=== PATIENT | male | born 1980 | race Caucasian/White ===

== ENCOUNTER 2020-02-27 13:08 | Emergency (ER) | payer BC, SELFPAY ==
[2020-02-27 13:30] VITALS: BP 138/89; PULSE 74; RESP 18; TEMP 37; O2SAT 98; BMI 28.1
--- NOTE | 2020-02-27 13:34 | XR_ITS ---
PROCEDURE: XR CHEST 2V CLINICAL HISTORY: SHORTNESS OF BREATH COMPARISON: CXR4 CHEST-SPECIAL VIEWS:DECUBITUS from 10/05/[address] CHEST W/ CONTRAST from 10/06/2016 CXR CHEST(2 VIEWS-NOT PORTABLE) from 10/07/2016 CXR CHEST(2 VIEWS-NOT PORTABLE) from 10/07/2016 FINDINGS: The cardiomediastinal silhouette and pulmonary vascularity are within normal limits. The lungs are clear without infiltrates, suspicious nodules, or pleural effusions. The right hemidiaphragm is slightly elevated as before. IMPRESSION: No acute findings. Dictated by: Malik Zaidi MD 02/27/2020 14:03 Electronically signed by Malik Zaidi MD in [place] 02/27/2020 14:03
--- NOTE | 2020-02-27 13:55 | HMH.EDUTC ---
[facility] [place] Clinical Impression: Viral syndrome, Pleurisy Disposition: Home, Self-Care Condition on Discharge: Good Instructions: DI for Pleurisy, DI for Viral Syndrome, Preventing the Spread of Coronavirus Discharge Instructions Additional Instructions: Drink plenty of fluids. Take tylenol or ibuprofen for pain or fever. Take the medications as directed. Follow up with your regular doctor. GO TO THE ER FOR ANY WORSENING SYMPTOMS Prescriptions: Ondansetron [Zofran 4mg ODT] 4 mg PO Q8HP PRN #10 tab.rapdis PRN Reason: Nausea Transmission Status: Received by [facility] # methylPREDNISolone [Medrol] 4 mg PO DIRECTED 6 Days #21 tab.ds.pk Transmission Status: Received by [facility] # Azithromycin [Z-Tim 250mg Tab*] 250 mg PO UD DOSE PK #6 tab Transmission Status: Received by [facility] # Referrals: Naveed Kramer MD [Primary Care Provider] - Time of Disposition: 14:14 Medical Decision Making - Medical Records Medical records reviewed: No: I reviewed the patient's medical records. - [place] Inquiry Pt receiving controlled substance: No Vital Signs: 02/27/20 13:30 02/27/20 14:16 Temperature 98.6 F 98.6 F Temperature Source Oral Pulse Rate 74 Pulse Rate [Left Brachial] 74 Respiratory Rate 18 18 Blood Pressure 138/89 Blood Pressure [Left Arm] 138/89 Blood Pressure Mean [Left Arm] 105 Blood Pressure Source [Left Arm] Automatic Cuff Blood Pressure Position [Left Arm] Sitting 02 Sat by Pulse Oximetry 98 Oxygen Delivery Method Room Air - Lab Data Lab results reviewed: Yes: I reviewed the patient's lab results. Lab Results 02/27/20 13:35: Influenza Type A Ag Negative, Influenza Type B Ag Negative 02/27/20 13:35: Strep Scn Rapid [facility] Negative Orders (Tests/Meds): ED MEDICATIONS Discontinued Medications Generic Name Dose Route Start Last Admin Trade Name Freq PRN Reason Stop Dose Admin Ceftriaxone Sodium 1 gm 02/27/20 14:06 02/27/20 14:13 Rocephin 1gm Vial IM 02/27/20 14:07 1 gm ONCE ONE Administration Protocol Lidocaine HCl 0 ml 02/27/20 14:02/27/20 14:13 Lidocaine 1% 10ml Mdv IM 02/27/20 14:07 2.1 ml ONCE ONE Administration Methylprednisolone Sodium Succinate 125 mg 02/27/20 14:06 02/27/20 14:11 Solu-Medrol 125mg/2ml Vial IM 02/27/20 14:07 125 mg ONCE ONE Administration ORDERS Category Date Time Status SARS-CoV-2, BIN Stat Lab 02/27/20 14:21 Received Strep Screen Confirmation Stat Micro 02/27/20 13:35 Received - Radiology Data #1 Image(s): Chest Image Reviewed: Yes I reviewed the patient's radiology image Preliminary Findings: No Infiltrates Seen PROCEDURE: XR CHEST 2V CLINICAL HISTORY: SHORTNESS OF BREATH COMPARISON: CXR4 CHEST-SPECIAL VIEWS:DECUBITUS from 10/05/[address] CHEST W/ CONTRAST from 10/06/2016 CXR CHEST(2 VIEWS-NOT PORTABLE) from 10/07/2016 CXR CHEST(2 VIEWS-NOT PORTABLE) from 10/07/2016 FINDINGS: The cardiomediastinal silhouette and pulmonary vascularity are within normal limits. The lungs are clear without infiltrates, suspicious nodules, or pleural effusions. The right hemidiaphragm is slightly elevated as before. IMPRESSION: No acute findings. Dictated by: Malik Zaidi MD 02/27/2020 14:03 Electronically signed by Malik Zaidi MD in [place] 02/27/2020 14:03 [facility] [place] - General Stated complaint: headache,weak,fatique Time Seen by Provider: 02/27/20 13:15 Mode of Arrival: Ambulatory Source of Information: Patient Limitations: No Limitations Description of Symptoms (Recalled from Triage Doc. by RN): PATIENT C/O FATIGUE, BODY ACHES, NAUSEA, SHORTNESS OF BREATH, AND SORE THROAT SINCE YESTERDAY. DENIES FEVER. NO KNOWN SICK CONTACTS HEENT Symptoms (Recalled from RN notes): Yes Resp Symptoms (Recalled from RN notes): Yes Skin Symptoms (Recalled from RN notes): No MS Symptoms (Recalled fr
[2020-02-27 14:16] VITALS: BP 138/89; PULSE 74; RESP 18; TEMP 37; O2SAT 98
[2020-02-27 14:17] LABS: UTC Influenza A Antigen Negative (Negative); UTC Strep Screen (Rapid) Negative (Negative)
[2020-02-27 14:18] LABS: UTC Influenza B Antigen Negative (Negative)
[2020-02-29 15:39] LABS: Covid-19 Nasal PCR Sendout Lex NOT DETECTED
== END 2020-02-27 14:31 | disposition home or self-care (01) ==
PROVIDERS: Emergency Provider Nurse Practitioner Family; PCP Family Medicine
DX: B34.9 Viral infection, unspecified (principal); R09.1 Pleurisy; Z88.8 Allergy status to other drugs, medicaments and biological substances
CPT/HCPCS: 71046; 87804; 87880; 96372; 99203; U0004

== ENCOUNTER → 2021-05-15 09:41 | Outpatient (CLI) | payer BC, SELFPAY | PROVIDERS: PCP Internal Medicine; Visit Provider Nurse Practitioner | DX: Z11.52 Encounter for screening for COVID-19 (principal) | CPT/HCPCS: C9803; U0003; U0005 ==

== ENCOUNTER → 2021-09-23 14:40 | Outpatient (CLI) | payer BC, SELFPAY | PROVIDERS: PCP Pediatrics; Visit Provider Nurse Practitioner | DX: Z20.822 Contact with and (suspected) exposure to COVID-19 (principal) | CPT/HCPCS: C9803; U0003; U0005 ==

== ENCOUNTER 2022-02-06 13:08 | Observation (INO) | payer BC, SELFPAY ==
[2022-02-06] VITALS (14 sets, daily range): BP systolic 118–150; BP diastolic 62–96; PULSE 78–112; RESP 16–18; TEMP 35.4–37.1; O2SAT 86–98; BMI 29.0
--- NOTE | 2022-02-06 13:12 | PC.NURSE ---
AHSAN CONKLIN at notified of pt rectal temp 95.3
--- NOTE | 2022-02-06 13:17 | ECG_ITS ---
APPROVED REPORT Exam: Resting ECG HR:102 bpm ECG Measurements Heart Rate 102 AXES MI 164 P 26 QRSd 106 QRS 45 QT 347 T 29 QTc 405 Conclusion SINUS TACHYCARDIA ABNORMAL RHYTHM ECG UNCONFIRMED REPORT Electronically signed by : Naveed Barrow MD 02/07/2022 20:17:42
[2022-02-06 14:02] LABS: Amphetamine/Metha Screen,Urine Negative ng/ml (<1000)
[2022-02-06 14:03] LABS: Barbiturates Screen,Urine Negative ng/ml (<200)
[2022-02-06 14:04] LABS: Benzodiazepines Screen,Urine Negative ng/ml (<200); Cannabinoid Screen,Urine Negative ng/ml (<50)
[2022-02-06 14:05] LABS: Cocaine Screen,Urine Negative ng/ml (<300); Methadone Screen,Urine Negative ng/ml (<300)
[2022-02-06 14:06] LABS: Opiate Screen,Urine Negative ng/ml (<300)
[2022-02-06 14:07] LABS: Phencyclidine Screen,Urine Negative ng/ml (<25)
--- NOTE | 2022-02-06 14:10 | HMH.EDGENADL ---
ED Disposition Clinical Impression: Anemia, Ingestion of unknown medication, Hypoalbuminemia Disposition: Still a Patient Condition on Discharge: Undetermined - Critical Care Critical Care Time: No Attestation: On 02/06/22, the high probability of a clinically significant, sudden or life threatening deterioration of the following system(s) required my full and direct attention, intervention and personal management. The time I documented below is in addition to time spent performing reported procedures but includes the following listed in this critical care notation. Medical Decision Making - Medical Records Medical records reviewed: Yes: I reviewed the patient's medical records. - Carroll Inquiry Pt receiving controlled substance: No Vital Signs: 02/06/22 13:07 02/06/22 13:24 02/06/22 13:30 Temperature 95.8 F L Temperature Source Rectal Pulse Rate 78 78 Pulse Rate [Right] 108 H Respiratory Rate 16 18 16 Blood Pressure 122/94 H 148/89 H Blood Pressure [Right Arm] 136/96 H Blood Pressure Mean 99 108 Blood Pressure Mean [Right Arm] 109 Blood Pressure Source [Right Arm] Automatic Cuff Blood Pressure Position [Right Arm] Sitting 02 Sat by Pulse Oximetry 96 86 L 88 L Oxygen Delivery Method Room Air 02/06/22 14:30 02/06/22 15:00 02/06/22 15:30 Temperature Temperature Source Pulse Rate 105 H 105 H Pulse Rate [Right] Respiratory Rate 18 16 16 Blood Pressure 131/84 122/78 123/73 Blood Pressure [Right Arm] Blood Pressure Mean 99 92 83 Blood Pressure Mean [Right Arm] Blood Pressure Source [Right Arm] Blood Pressure Position [Right Arm] 02 Sat by Pulse Oximetry 97 97 Oxygen Delivery Method 02/06/22 16:30 02/06/22 17:03 02/06/22 17:30 Temperature Temperature Source Pulse Rate 112 H 101 H 105 H Pulse Rate [Right] Respiratory Rate 16 16 16 Blood Pressure 131/83 150/77 H 136/62 Blood Pressure [Right Arm] Blood Pressure Mean 95 90 86 Blood Pressure Mean [Right Arm] Blood Pressure Source [Right Arm] Blood Pressure Position [Right Arm] 02 Sat by Pulse Oximetry 97 Oxygen Delivery Method 02/06/22 17:40 Temperature 98.7 F Temperature Source Oral Pulse Rate Pulse Rate [Right] Respiratory Rate Blood Pressure Blood Pressure [Right Arm] Blood Pressure Mean Blood Pressure Mean [Right Arm] Blood Pressure Source [Right Arm] Blood Pressure Position [Right Arm] 02 Sat by Pulse Oximetry Oxygen Delivery Method - Lab Data Lab Results 02/06/22 13:27: Urine Opiates Screen Negative, Urine Methadone Screen Negative, Ur Barbituates Screen Negative, Ur Phencyclidine Scrn Negative, Ur Amphetamines Screen Negative, U Benzodiazepines Scrn Negative, Urine Cocaine Screen Negative, U Marijuana (THC) Screen Negative 02/06/22 13:27: VBG pH 7.27 L, VBG pCO2 35.6, VBG pO2 52.1 H, VBG HCO3 16.1 L, VBG Total CO2 17.1 L, VBG O2 Saturation 83.9 H, VBG Base Excess -10.8 L 02/06/22 14:28: WBC 5.2, RBC 2.97 L, Hgb 8.7 L, Hct 26.7 L, MCV 89.8, MCH 29.4, MCHC 32.7, RDW 13.9, Plt Count 153, MPV 7.8, Neut % (Auto) 80.3 H, Lymph % (Auto) 14.0, [place] % (Auto) 5.0, Eos % (Auto) 0.4, Baso % (Auto) 0.3, Neut # (Auto) 4.1, Lymph # (Auto) 0.7, [place] # (Auto) 0.3, Eos # (Auto) 0.0, Baso # (Auto) 0.0 02/06/22 14:28: Sodium 132 L, Potassium 4.2, Chloride 105, Carbon Dioxide 16 L, Anion Gap 15.2 H, BUN 7 L, Creatinine 0.50 L, Estimated Creat Clear 235, Estimated GFR 185, Est GFR ( Amer) 224, Glucose 64 L, Calcium 7.5 L, Total Bilirubin 0.4, AST 23, ALT 22, Alkaline Phosphatase 49, Troponin I < 0.01, Total Protein 3.9 L, Albumin 2.1 L, Globulin 1.8, Albumin/Globulin Ratio 1.2, Salicylates < 1.0 L, Acetaminophen < 10 L 02/06/22 14:28: Acetone Level None detected 02/06/22 15:52: Lactate 1.2 02/06/22 15:52: Plasma/Serum Alcohol < 10 02/06/22 16:45: Troponin I < 0.01 02/06/22 17:37: SARS-CoV-2 (PCR) Not detected, Influenza A Untype (PCR) Not detected, Influenza Type B (PCR) N
--- NOTE | 2022-02-06 14:17 | PC.NURSE ---
checked on pt at this time, mother at Bs, pt Sleeping. Pt mother reports pt was saying pt mouth was dry, will ask the doctor about anything PO at this time.
--- NOTE | 2022-02-06 14:18 | PC.NURSE ---
at bedside with US attempting to obtain blood. Lab was unsuccessful with two tech attempting.
--- NOTE | 2022-02-06 14:21 | PC.NURSE ---
ER at attempting to obtain blood on pt with ultrasound
--- NOTE | 2022-02-06 14:23 | PC.NURSE ---
pt arrived to ER with AMS, will answer some questions appropriately but is hard to arouse. PT gives multiple stories as to what he may have possibly taken or what is going. PT has hx of drug abuse and is currently on suboxone. Parents arrived and reported that when dad went over to his house he had to knock multiple times and when he answered he was altered and then fell to the floor. Dad called 911, EMS arrived and gave pt .5mg of narcan with no change. Pt is very pale in color and cool to the touch. temp was 95.8 rectal, warm blankets placed on pt and warm fluids started. Parents report they are unsure if pt has been using anything recently outside of his normal meds.
--- NOTE | 2022-02-06 14:42 | PC.NURSE ---
Notified resp of VBG order and blood was in lab
[2022-02-06 14:52] LABS: VBG Base Excess -10.8 mmol/L (-2.4-2.3); VBG HCO3 16.1 mmol/L (23-30); VBG Oxygen Saturation 83.9 % (50-70); VBG PCO2 35.6 mmol/L (35-51); VBG PH 7.27 mmol/L (7.31-7.41); VBG PO2 52.1 mmol/L (28-40); VBG Total CO2 17.1 mmol/L (23-27)
[2022-02-06 15:02] LABS: Acetaminophen < 10 ug/ml (10-30); Salicylate < 1.0 mg/dL (2.0-20.0)
--- NOTE | 2022-02-06 15:11 | PC.NURSE ---
PT rectal temp 96.5, pt still under warm blankets at this time
[2022-02-06 15:15] LABS: Troponin I < 0.01 ng/ml (0.00-0.034)
[2022-02-06 15:24] LABS: Acetone, Serum (Rapid) None Detected (None Detect)
--- NOTE | 2022-02-06 15:41 | PC.NURSE ---
lab called regarding lactic ordered. Family updated on POC.
--- NOTE | 2022-02-06 15:50 | CT_ITS ---
FINAL REPORT CLINICAL HISTORY: elevated lactate/ abdominal pain COMPARISON: September 30, 2019 FINDINGS: Axial CT images of the abdomen and pelvis were obtained without intravenous contrast. Coronal reformatted images were also obtained.This study was performed with techniques to keep radiation doses as low as reasonably achievable (ALARA). Individualized dose reduction techniques using automated exposure control or adjustment of mA and/or kV according to the patient's size were employed. Abdomen: There is mild bibasilar atelectasis. There is a less than 3 mm probable nonobstructing stone in the mid left kidney. There is no hydronephrosis. The gallbladder is present. The liver and pancreas have an unremarkable, unenhanced appearance. The spleen is borderline in size at 12.6 cm. No mass or adenopathy is seen. No inflammatory process is identified. Pelvis: Images of the pelvis reveal no evidence of ureteral dilation or ureteral stone. The appendix is not seen and likely surgically absent. There is a small amount of air in the bladder that may be iatrogenic. The bladder is distended extending to near the umbilicus. IMPRESSION: Nonobstructing probable left renal stone. Distended bladder with a small amount of air that may be iatrogenic. Reviewed, Interpreted and Dictated by Keith Metz III, MD Transcribed by Roberto Almeida Authenticated and [facility]
--- NOTE | 2022-02-06 15:53 | PC.NURSE ---
speaking with Poison Control at this time.
--- NOTE | 2022-02-06 15:58 | PC.NURSE ---
pt taken to CT at this time.
[2022-02-06 16:07] LABS: Lactic Acid 1.2 mmol/L (0.7-2.1)
[2022-02-06 16:29] LABS: Ethyl Alcohol < 10 mg/dl (0-10)
--- NOTE | 2022-02-06 16:51 | PC.NURSE ---
pt attempting to urinal at this time, pt reports did not need assistance
--- NOTE | 2022-02-06 17:00 | PC.NURSE ---
paged dr mata
--- NOTE | 2022-02-06 17:20 | PC.NURSE ---
AHSAN CONKLIN speaking with Dr. Nolan who is financial services consultant for service pts
--- NOTE | 2022-02-06 17:29 | PC.NURSE ---
notified care management of admission, spoke arturo. States she will let the warehouse shipping supervisor know.
--- NOTE | 2022-02-06 17:41 | PC.NURSE ---
covid swab sent to lab
[2022-02-06 17:45] LABS: Troponin I < 0.01 ng/ml (0.00-0.034)
[2022-02-06 17:46] LABS: Coronavirus 19, PCR Not Detected (NotDetected); Influenza A, PCR Not Detected (NotDetected); Influenza B, PCR Not Detected (NotDetected)
--- NOTE | 2022-02-06 18:15 | PC.NURSE ---
pt awake alert oriented x 4 family at bedside updated on plan of care
--- NOTE | 2022-02-06 18:23 | PC.NURSE ---
report called to floor
[2022-02-06 18:28] LABS: POC Glucose,Bedside 88 (70-110)
--- NOTE | 2022-02-06 18:38 | PC.NURSE ---
pT ARRIVED TO THE FLOOR AT THIS TIME
[2022-02-06 21:02] LABS: Iron 58 ug/dL (49-181)
[2022-02-06 21:09] LABS: Phosphorous 2.4 mg/dl (2.5-4.5)
[2022-02-06 21:11] LABS: Total Iron Binding Capacity 346 ug/dL (261-462)
[2022-02-06 22:04] LABS: Vitamin B12 702 pg/mL (239-931)
[2022-02-06 22:08] LABS: Folate 8.55 ng/mL
--- NOTE | 2022-02-06 22:50 | HMH.HP ---
*Admission Date: 02/06/22 *Chief complaint: encephalopathy *History of present illness: Mr. Snow is a 41-year-old male with past medical history significant for opiate dependence, depression, on Suboxone therapy. He presented to the ER this afternoon with altered mental status. Parents with him in the ER. Concerned that he took too much of his Suboxone along with some of his other medications for depression and to help him sleep. He was somnolent on arrival and unable to give a reliable history. Initiated work-up for metabolic causes. UDS was negative. (Does not look for synthetics however). Metabolic work-up positive for anion gap acidosis, marked normocytic anemia, hypoalbuminemia, and mild electrolyte disturbances. Given his confusion, lab findings concerning for malnutrition and anemia, medicine was consulted for admission. Patient was reevaluated after arriving to the floor. His mentation appears to have improved. He was alert and oriented x4. Parents at bedside state that he is more coherent than he was on arrival. When asked about substance use, home medications, he initially admitted Suboxone as one of his meds. States that he was taking his medications as prescribed until questioned by his father who stated he had counted his Suboxone strips. It is at this time that he stated he took more than he was supposed to and is actually out of his medication (inappropriately early). Denies other substance use. States he has been eating very poorly. Denies any active SI or HI. Only other complaint is some mild abdominal discomfort on exam. No significant shortness of breath, chest pain, vomiting, diarrhea. [facility] History I have reviewed the patient's past medical history: Yes Medical History: Reports:: Hypertension Denies:: Cancer, Diabetes Mellitus Type 1, Diabetes Mellitus Type 2, MRSA *Have you ever received a pneumonia vaccine?: No *Have you received a flu vaccine this season?: No Other Medical History: Reports: Anemia Other Surgeries: Yes: Appendectomy, EGD Amputation: No Fractures: No - *Social History Last grade of school completed: Some college Smoking Status: Never smoker Alcohol Intake: never *Occupational Status:: unemployed Housing: house Household Members: other *Travel in the last 8 weeks: None Family Hx:: Non-contributory Review of Systems - Review of Systems Review of systems:: pertinent systems reviewed and negative unless documented below (14 point review of systems performed, pertinent positives and negatives as per HPI) Meds Home Medications Medication Instructions Recorded Confirmed Type Azithromycin [Z-Tim 250mg Tab*] 250 mg PO UD DOSE PK #6 tab 02/27/20 Rx Buprenorphine HCl/Naloxone HCl 1 each SL TID 02/27/20 02/27/20 History [Suboxone 2 mg-0.5 mg Sl Film] Buspirone HCl [Buspar 10mg 10 mg PO TID 02/27/20 02/27/20 History tablet] Doxepin HCl [Sinequin 50mg capsule] 50 mg PO ONCE 02/27/20 02/27/20 History Metoprolol Succinate [Metoprolol 50 mg PO DAILY 02/27/20 02/27/20 History Succinate 50mg Tablet*] Ondansetron [Zofran 4mg ODT] 4 mg PO Q8HP PRN #10 tab.rapdis 02/27/20 Rx methylPREDNISolone [Medrol] 4 mg PO DIRECTED 6 Days #21 02/27/20 Rx tab.ds.pk Allergies Allergy/AdvReac Type Severity Reaction Status Date / Time levetiracetam [LEVETIRACETAM] Allergy Unknown Verified 10/18/18 16:44 tramadol [TRAMADOL] Allergy Unknown Verified 10/18/18 16:44 Exam Vital signs and Labs for Last 24 Hours: Temp Pulse Resp BP Pulse Ox 98.8 F 86 18 119/70 96 02/06/22 20:00 02/06/22 20:00 02/06/22 20:00 02/06/22 20:00 02/06/22 20:00 Laboratory Results - last 24 hr 02/06/22 13:27: Urine Opiates Screen Negative, Urine Methadone Screen Negative, Ur Barbituates Screen Negative, Ur Phencyclidine Scrn Negative, Ur Amphetamines Screen Negative, U Benzodiazepines Scrn Negative, Urine Cocaine Screen Negative, U Marijuana (THC) Screen Negative 02/06/22 13:27: VB
[2022-02-07] VITALS: BP 123/69; PULSE 73; RESP 17; TEMP 37.1; O2SAT 97
[2022-02-07 04:00] VITALS: BP 110/74; PULSE 70; RESP 18; TEMP 36.5; O2SAT 94
--- NOTE | 2022-02-07 07:05 | PC.NURSE ---
Pt a+o x4. Pt has not voiced any complaints to staff. Call light within reach.
--- NOTE | 2022-02-07 07:42 | HMH.DCSUM ---
General - General Admission date:: 02/06/22 Discharge date: 02/07/22 HPI HPI: Mr. Mendoza is a 41-year-old male with past medical history significant for opiate dependence, depression, on Suboxone therapy. He presented to the ER this afternoon with altered mental status. Parents with him in the ER. Concerned that he took too much of his Suboxone along with some of his other medications for depression and to help him sleep. He was somnolent on arrival and unable to give a reliable history. Initiated work-up for metabolic causes. UDS was negative. (Does not look for synthetics however). Metabolic work-up positive for anion gap acidosis, marked normocytic anemia, hypoalbuminemia, and mild electrolyte disturbances. Given his confusion, lab findings concerning for malnutrition and anemia, medicine was consulted for admission. Patient was reevaluated after arriving to the floor. His mentation had improved, but not quite baseline. He was alert and oriented x4. Parents at bedside state that he is more coherent than he was on arrival. When asked about substance use, home medications, he initially admitted Suboxone as one of his meds. States that he was taking his medications as prescribed until questioned by his father who stated he had counted his Suboxone strips. It is at this time that he stated he took more than he was supposed to and is actually out of his medication (inappropriately early). Denies other substance use. States he has been eating very poorly. Denies any active SI or HI. Only other complaint is some mild abdominal discomfort on exam. No significant shortness of breath, chest pain, vomiting, diarrhea. Hospital Course Hospital Course: 41-year-old male with history of depression, substance dependence, who presented to the ER with encephalopathy. After significant questioning, admits to potentially taking more of his Suboxone than prescribed. Noted to have labs significant for electrolyte disturbances, protein deficiency, and marked anemia. Further work-up initiated. Repeat labs on day of discharge however showed drastic improvement in essential normalization of lab abnormalities from admission. Problems addressed as follows: Encephalopathy Opiate dependence on Suboxone therapy Malnutrition -Admitted for altered mental status. Given report of taking more Suboxone than prescribed, concern for medication overdose. Has returned to baseline by morning of discharge. Received IV fluids and rally pack (multivitamin). Tolerating p.o. intake on day of discharge. Work-up for malnutrition including B12, folate, phosphorus was unremarkable. Encouraged to increase protein intake. Recommend 50 to 60 g of protein a day. Would benefit from daily multivitamin. Anemia, acute versus chronic? -Unclear etiology. B12 and iron levels were obtained, within normal range. Peripheral smear obtained, pending at time of discharge. Recommend follow-up by PCP with his results. Depression -Resumed patient's home medications. Currently sees psychiatry. Needs to see a therapist. No active SI/HI Encouraged patient to follow-up with his psychiatrist in the coming week. Needs to follow-up with his Suboxone doctor in the coming week. If anemia persists, would benefit from further evaluation with consideration of colonoscopy. Objective Vital signs: Temp Pulse Resp BP Pulse Ox 97.7 F 70 18 110/74 94 L 02/07/22 04:00 02/07/22 04:00 02/07/22 04:00 02/07/22 04:00 02/07/22 04:00 Narrative: - Constitutional no acute distress, stable on room air - *Routine HEENT Exam Head: Present: normocephalic Eye: Present: EOMI, PERRL ENT: Present: mucous membranes moist - *Routine Neck Exam Present: supple. Absent: lymphadenopathy - *Routine Respiratory Exam Good air movement bilaterally, No crackles, rhonchi or wheeze - *Routine Cardiovascular Exam Present: RRR, no murmur - *Routine Abdominal Exam Pres
[2022-02-07 08:00] VITALS: BP 132/74; PULSE 80; RESP 18; TEMP 36.7; O2SAT 96
[2022-02-07 09:22] LABS: Basophils # 0.1 K/mm3 (0-0.2); Eosinophils # 0.1 K/mm3 (0.0-0.4); Eosinophils % 2.1 % (0.1-12.0); Hematocrit 36.9 % (42.0-52.0); Lymphocytes # 1.9 K/mm3 (0.7-4.5); Mean Corpuscular HGB Conc 34.3 g/dL (31.8-35.4); Mean Corpuscular Hemoglobin 29.5 pg (27.0-31.2); Mean Platelet Volume 7.3 fl (7.4-10.4); Monocytes # 0.3 K/mm3 (0.1-1.0); Monocytes % 5.9 % (1.7-9.3); Neutrophils # 3.3 K/mm3 (1.8-7.8); Platelet Count 224 K/mm3 (142-424); Red Blood Count 4.29 M/mm3 (4.60-6.20); Red Cell Distribution Width 14.2 % (11.5-17.5); White Blood Count 5.7 K/mm3 (4.8-10.8)
[2022-02-07 09:25] LABS: Chloride 106 mmol/L (98-107); Sodium 139 mmol/L (136-145)
[2022-02-07 09:28] LABS: Alanine Aminotransferase 37 U/L (12-78); Albumin Level 3.7 g/dl (3.5-5.0); Albumin/Globulin Ratio 1.3 (1.1-1.8); Alkaline Phosphatase 89 U/L (38-126); Aspartate Amino Transferase 33 U/L (17-59); Bilirubin,Total 0.8 mg/dl (0.2-1.3); Blood Urea Nitrogen 13 mg/dl (9-20); Carbon Dioxide 30 mmol/L (22.0-30.0); Creatinine Clearance Estimated 107 mL/min (50-200); Estimated Glomerular Filt Rate 75 ml/min (>60); GFR (African American) 90 ML/MIN (>60); Globulin 2.8 g/dL (1.3-3.2); Total Protein,Serum 6.5 g/dl (6.3-8.2)
[2022-02-07 09:29] LABS: Calcium 8.9 mg/dl (8.4-10.2); Glucose 121 mg/dl (74-100)
--- NOTE | 2022-02-07 09:49 | P.CONPHA_ITS ---
[facility] Pharmacy VTE Monitoring - Patient Demographics Admission date: 02/07/22 Report Date: 02/07/22 Time: 09:49 Allergies/Adverse Reactions: Patient Allergies levetiracetam [LEVETIRACETAM] Allergy (Unknown, Verified 10/18/18 16:44) tramadol [TRAMADOL] Allergy (Unknown, Verified 10/18/18 16:44) Height: 1.7 m Weight: 83.915 kg Patient Problems: Current Active Problems Anemia (Acute) Ingestion of unknown medication (Acute) Hypoalbuminemia (Acute) Encephalopathy (Acute) Malnutrition (Acute) - VTE Risk Labs: VTE Related Lab Results Hgb 8.7 g/dL (14.1-18.0) L 02/06/22 14:28 Hct 26.7 % (42.0-52.0) L 02/06/22 14:28 Plt Count 153 K/mm3 (142-424) 02/06/22 14:28 BUN 7 mg/dl (9-20) L 02/06/22 14:28 Creatinine 0.50 mg/dl (0.66-1.25) L 02/06/22 14:28 Estimated Creat Clear 235 mL/min (50-200) 02/06/22 14:28 Was VTE Risk Assessment Performed: Yes VTE Score: 0 VTE Risk Level: Very Low Risk Clinical Trial Participant: No - Prophylaxis VTE Prophylaxis Ordered?: Yes Types of VTE Prophylaxis: TEDS Knee High
--- NOTE | 2022-02-07 09:58 | HMH.PHAINT ---
home medication list verified using list from outpatient pharmacy, including suboxone
[2022-02-07 10:38] LABS: Magnesium 2.3 mg/dl (1.6-2.3); Phosphorous 2.6 mg/dl (2.5-4.5)
[2022-02-07 11:41] LABS: Hemoglobin 12.7 g/dL (14.1-18.0)
[2022-02-07 15:10] LABS: Sodium 139 mmol/L (136-145)
[2022-02-07 15:11] LABS: Carbon Dioxide 29 mmol/L (22.0-30.0); Chloride 104 mmol/L (98-107)
[2022-02-07 15:12] LABS: Blood Urea Nitrogen 14 mg/dl (9-20)
[2022-02-07 15:13] LABS: Glucose 148 mg/dl (74-100)
[2022-02-07 15:14] LABS: Aspartate Amino Transferase 39 U/L (17-59); Bilirubin,Total 0.7 mg/dl (0.2-1.3)
[2022-02-07 15:15] LABS: Alanine Aminotransferase 43 U/L (12-78); Total Protein,Serum 6.9 g/dl (6.3-8.2)
[2022-02-07 15:16] LABS: Albumin/Globulin Ratio 1.4 (1.1-1.8); Alkaline Phosphatase 96 U/L (38-126); Calcium 9.3 mg/dl (8.4-10.2); Globulin 2.9 g/dL (1.3-3.2)
[2022-02-07 15:19] LABS: Anion Gap 10.6 mEq/L (5-15); Potassium 4.6 mmoL/L (3.5-5.1)
[2022-02-07 15:20] LABS: Creatinine Clearance Estimated 118 mL/min (50-200); Estimated Glomerular Filt Rate 83 ml/min (>60); GFR (African American) 101 ML/MIN (>60)
[2022-02-07 15:22] LABS: Red Blood Count 4.28 M/mm3 (4.60-6.20); White Blood Count 7.5 K/mm3 (4.8-10.8)
[2022-02-07 15:23] LABS: Hematocrit 37.9 % (42.0-52.0); Hemoglobin 12.7 g/dL (14.1-18.0); Mean Corpuscular Volume 88.6 fl (80-94)
[2022-02-07 15:24] LABS: Mean Corpuscular Hemoglobin 29.7 pg (27.0-31.2); Platelet Count 239 K/mm3 (142-424); Red Cell Distribution Width 14.2 % (11.5-17.5)
[2022-02-07 15:25] LABS: Eosinophils % 0.6 % (0.1-12.0); Lymphocytes % 12.8 % (10-50); Monocytes % 2.9 % (1.7-9.3); Neutrophils % 82.4 % (37.0-80.0)
[2022-02-07 15:26] LABS: Basophils % 0.9 % (0.1-2.0); Monocytes # 0.2 K/mm3 (0.1-1.0); Neutrophils # 6.2 K/mm3 (1.8-7.8)
[2022-02-07 15:28] LABS: Mean Corpuscular HGB Conc 33.6 g/dL (31.8-35.4)
[2022-02-08 20:42] LABS: Peripheral Smear Review Scanned Result
--- NOTE | 2022-02-09 14:37 | CARE MANAGER ---
Contacted patient related to discharge from hospital. States that he is doing better. He has the information he needs for increased caloric intake. He has made follow up appointments with appropriate physicians and denies any questions or concerns at this time. Ольга Leo
== END 2022-02-07 13:54 | disposition home or self-care (01) ==
LOC: ER 14:12 → 2ND 18:28
PROVIDERS: Emergency Medicine; Admitting Provider Internal Medicine Adolescent Medicine; Emergency Provider Student in an Organized Health Care Education/Training Program; PCP Family Medicine; Visit Provider Internal Medicine Adolescent Medicine
DX: G93.40 Encephalopathy, unspecified (principal); T50.901A Poisoning by unspecified drugs, medicaments and biological substances, accidental (unintentional), initial encounter; E46 Unspecified protein-calorie malnutrition; Z68.29 Body mass index [BMI] 29.0-29.9, adult; E88.09 Other disorders of plasma-protein metabolism, not elsewhere classified; D64.9 Anemia, unspecified; Z20.822 Contact with and (suspected) exposure to COVID-19
CPT/HCPCS: 36415; 74176; 80053; 80305; 80329; 82009; 82607; 82746; 82803; 82962; 83540; 83550; 83605; 83735; 83930; 84100; 84484; 85025; 93005; 99285; C9803; G0378; J0574; U0003; U0005

== ENCOUNTER 2022-04-20 08:08 | Observation (INO) | payer BC, SELFPAY ==
[2022-04-20] VITALS (29 sets, daily range): BP systolic 104–142; BP diastolic 43–85; PULSE 89–135; RESP 13–20; TEMP 35.8–37; O2SAT 90–99; BMI 23.6; BMI 29.5
--- NOTE | 2022-04-20 08:10 | CT_ITS ---
FINAL REPORT TECHNIQUE: Axial CT images were performed through the head. Coronal reformatted images were submitted. This study was performed with techniques to keep radiation doses as low as reasonably achievable (ALARA). Individualized dose reduction techniques using automated exposure control or adjustment of mA and/or kV according to the patient's size were employed. CLINICAL HISTORY: unresponsive FINDINGS: There is some mild decreased attenuation in the deep white matter. The ventricles are normal in size. There is no evidence of hemorrhage. There is no mass or edema identified. There is no abnormal extra-axial fluid seen. The sinuses are well aerated. IMPRESSION: No acute intracranial process. Reviewed, Interpreted and Dictated by Vladimir Henry MD Transcribed by Anum Hernandez Authenticated and . [facility]
--- NOTE | 2022-04-20 08:10 | XR_ITS ---
FINAL REPORT CLINICAL HISTORY: unresponsive COMPARISON: February 27, 2020 FINDINGS: The heart size is normal. The mediastinum is normal. The lungs are a little underinflated. There is mild bibasilar atelectasis. There are no pleural effusions. There is no pneumothorax. There is no osseous abnormality. IMPRESSION: Underinflated lungs with mild bibasilar atelectasis. Reviewed, Interpreted and Dictated by Vladimir Henry MD Transcribed by Lay Fulton Authenticated and [facility]
--- NOTE | 2022-04-20 08:26 | ECG_ITS ---
APPROVED REPORT Exam: Resting ECG HR:132 bpm ECG Measurements Heart Rate 132 AXES QRSd 111 QRS 60 QT 320 T 5 QTc 398 Conclusion ATRIAL FLUTTER/TACHYCARDIA WITH RAPID VENTRICULAR RESPONSE MODERATE INTRAVENTRICULAR CONDUCTION DELAY [110+ ms QRS DURATION] NONSPECIFIC ST & T-WAVE ABNORMALITY ABNORMAL RHYTHM ECG UNCONFIRMED REPORT Electronically signed by : Naveed Barrow MD 04/21/2022 21:27:37
[2022-04-20 08:27] LABS: ABG Base Excess -0.2 mmol/L (-2.4-2.3); ABG HCO3 25.1 mmhg (22.0-26.0); ABG Oxygen Saturation 94 % (90-100); ABG PCO2 44.5 mmhg (35.0-45.0); ABG PH 7.37 mmol/L (7.35-7.45); ABG PO2 70.4 mmhg (80-100); ABG TCO2 26.5 mmhg (23-27); Source Right Radial
[2022-04-20 08:28] LABS: Allen's Test ACCEPTABLE
[2022-04-20 08:30] LABS: Oxygen ROOM AIR %
[2022-04-20 08:33] LABS: Basophils # 0.1 K/mm3 (0-0.2); Basophils % 0.6 % (0.1-2.0); Eosinophils # 0.1 K/mm3 (0.0-0.4); Hematocrit 44.7 % (42.0-52.0); Hemoglobin 14.1 g/dL (14.1-18.0); Lymphocytes # 1.7 K/mm3 (0.7-4.5); Lymphocytes % 18.2 % (10-50); Mean Corpuscular HGB Conc 31.4 g/dL (31.8-35.4); Mean Corpuscular Hemoglobin 29.3 pg (27.0-31.2); Mean Corpuscular Volume 93.4 fl (80-94); Mean Platelet Volume 7.5 fl (7.4-10.4); Monocytes # 0.5 K/mm3 (0.1-1.0); Neutrophils # 6.9 K/mm3 (1.8-7.8); Neutrophils % 75.1 % (37.0-80.0); Platelet Count 300 K/mm3 (142-424); Red Blood Count 4.79 M/mm3 (4.60-6.20); Red Cell Distribution Width 13.9 % (11.5-17.5); White Blood Count 9.2 K/mm3 (4.8-10.8)
--- NOTE | 2022-04-20 08:35 | PC.NURSE ---
Notified lab that we could only collect some of the labs, jeffrey reports she will come get the rest
--- NOTE | 2022-04-20 08:36 | PC.NURSE ---
contacted lab to draw blood on pt, only able to obtain a green and purple tube of blood on pt when starting both IVs
--- NOTE | 2022-04-20 08:37 | PC.NURSE ---
pt mother at at this time
--- NOTE | 2022-04-20 08:40 | INFXCTL.NOTE ---
ER to BS updating pt mother on POC
--- NOTE | 2022-04-20 08:41 | PC.NURSE ---
AHSAN CONKLIN at speaking with patients Mother at this time.
--- NOTE | 2022-04-20 08:41 | PC.NURSE ---
pt to CT via stretcher with QASIM burroughss
--- NOTE | 2022-04-20 08:41 | PC.NURSE ---
pt to CT via stretcher
--- NOTE | 2022-04-20 08:42 | CT_ITS ---
FINAL REPORT TECHNIQUE: Thin section axial CT images were performed from the lung apices to the upper abdomen after the administration of IV contrast. 3-D and MIP reconstructions performed. This study was performed with techniques to keep radiation doses as low as reasonably achievable (ALARA). Individualized dose reduction techniques using automated exposure control or adjustment of mA and/or kV according to the patient's size were employed. CLINICAL HISTORY: chest pain the last 2 days , unresponsive post narcan FINDINGS: Suboptimal opacification of the pulmonary arteries limits assessment for pulmonary emboli. There is no aortic dissection. There is no axillary adenopathy. There is a 10 mm right paratracheal lymph node. The heart size is normal. There is no pleural or pericardial effusion. Lung window images demonstrate no suspicious pulmonary nodule . There is mild basilar edema or atelectasis. IMPRESSION: Technically limited exam for assessment of pulmonary embolism. Mild basilar edema or atelectasis. Reviewed, Interpreted and Dictated by Vladimir Henry MD Transcribed by Kellie Redman Authenticated and [facility]
--- NOTE | 2022-04-20 08:43 | PC.NURSE ---
notified rad staff of added on CTA chest PE protocol ER MD gave verbal order states pt mother reports pt has recently been c/o chest pain
[2022-04-20 08:49] LABS: Coronavirus 19, PCR Not Detected (NotDetected); Influenza A, PCR Not Detected (NotDetected); Influenza B, PCR Not Detected (NotDetected)
[2022-04-20 08:50] LABS: Ethyl Alcohol < 10 mg/dl (0-10)
[2022-04-20 09:05] LABS: Amphetamine/Metha Screen,Urine Negative ng/ml (<1000); Barbiturates Screen,Urine Negative ng/ml (<200); Benzodiazepines Screen,Urine Negative ng/ml (<200); Cannabinoid Screen,Urine Negative ng/ml (<50); Cocaine Screen,Urine Negative ng/ml (<300); Methadone Screen,Urine Negative ng/ml (<300); Opiate Screen,Urine Negative ng/ml (<300); Phencyclidine Screen,Urine Negative ng/ml (<25)
[2022-04-20 09:11] LABS: Alanine Aminotransferase 59 U/L (12-78); Albumin Level 4.2 g/dl (3.5-5.0); Albumin/Globulin Ratio 1.3 (1.1-1.8); Alkaline Phosphatase 119 U/L (38-126); Anion Gap 14.3 mEq/L (5-15); Aspartate Amino Transferase 79 U/L (17-59); Blood Urea Nitrogen 12 mg/dl (9-20); Calcium 9.3 mg/dl (8.4-10.2); Carbon Dioxide 24 mmol/L (22.0-30.0); Chloride 103 mmol/L (98-107); Creatinine Clearance Estimated 93 mL/min (50-200); Estimated Glomerular Filt Rate 75 ml/min (>60); GFR (African American) 90 ML/MIN (>60); Globulin 3.2 g/dL (1.3-3.2); Glucose 124 mg/dl (74-100); Potassium 5.3 mmoL/L (3.5-5.1); Sodium 136 mmol/L (136-145); Total Protein,Serum 7.4 g/dl (6.3-8.2)
--- NOTE | 2022-04-20 09:11 | PC.NURSE ---
pt returned from CT via stretcher with QASIM burroughss x 2. Family at BS
--- NOTE | 2022-04-20 09:18 | PC.NURSE ---
Inga, supervisor seaming at to draw labs
--- NOTE | 2022-04-20 09:23 | PC.NURSE ---
AHSAN CONKLIN at speaking with patients Father.
[2022-04-20 09:25] LABS: Microscopic,Cath URINE MICROSCOPIC (MICROSCOPIC)
[2022-04-20 09:27] LABS: Appearance,Urine/Cath CLEAR (Clear); Bilirubin,Cath Negative (Negative); Blood, Urine/Cath TRACE-I (Negative); Color,Urine/Cath YELLOW (Yellow); Glucose,Urine/Cath (UA) Negative (Negative); Ketones,Urine/Cath Negative (Negative); Leukocyte Esterase,Cath Negative (Negative); Nitrate,Cath Negative (Negative); Protein,Urine/Cath TRACE (Negative); Urobilinogen,Cath 0.2 EU/dl (0.2)
[2022-04-20 09:51] LABS: Lactic Acid 1.3 mmol/L (0.7-2.1)
[2022-04-20 09:53] LABS: Troponin I < 0.01 ng/ml (0.00-0.034)
[2022-04-20 09:57] LABS: Bacteria,Urine/Cath TRACE /lpf; RBC,Urine/Cath Occasional # /hpf (0-3); Squamous Epithelial Ur./Cath Occasional #/hpf (0-5)
--- NOTE | 2022-04-20 11:07 | PC.NURSE ---
Paging Dr. Castellon for ER MD at this time
--- NOTE | 2022-04-20 11:13 | PC.NURSE ---
Called Dr Arceo for service pt asim, stated that he was in room and would have him call back
--- NOTE | 2022-04-20 11:41 | PC.NURSE ---
paged Dr. Castellon for 2nd time. spoke with Rose Marie in office
--- NOTE | 2022-04-20 11:51 | PC.NURSE ---
notified care management of admission
--- NOTE | 2022-04-20 11:52 | INFXCTL.NOTE ---
pt sleeping at this time, restraints removed. will continue to monitor
--- NOTE | 2022-04-20 12:16 | PC.NURSE ---
notified mix house operator per ER MD request (he spoke with dr. ruiz about this during admission conversation) pt needs step down bed, wants close monitor on pt r/t have to arouse pt for response. Notified ER MD at this time pt is started to wake up more, pt helped staff scoot himself up in bed and turn over on his side.
--- NOTE | 2022-04-20 12:20 | PC.NURSE ---
mother at bs, pt is relaxed and resting in bed. no needs at this time
--- NOTE | 2022-04-20 12:21 | PC.NURSE ---
contacting poison control at this time per ER request
--- NOTE | 2022-04-20 12:23 | PC.NURSE ---
spoke with ervin at poison control, request we repeat ekg, add tylenol and aspirin levels, keep pt for 24 obs, seizure precautions for approx 18 hrs. notified above information to AHSAN CONKLIN
--- NOTE | 2022-04-20 12:27 | PC.NURSE ---
notified lab of new orders on pt
--- NOTE | 2022-04-20 12:33 | ECG_ITS ---
APPROVED REPORT Exam: Resting ECG HR:114 bpm ECG Measurements Heart Rate 114 AXES DC 183 P 38 QRSd 104 QRS 43 QT 316 T 1 QTc 384 Conclusion SINUS TACHYCARDIA NONSPECIFIC T-WAVE ABNORMALITY ABNORMAL RHYTHM ECG WARNING: DATA QUALITY MAY AFFECT INTERPRETATION UNCONFIRMED REPORT Electronically signed by : Naveed Barrow MD 04/21/2022 21:27:10
[2022-04-20 12:47] LABS: Free Thyroxine Index 2.6 ug/dL (5.93-13.13); T4 (Thyroxine) 7.3 ug/dl (5.53-11.0); Triiodothryronine (T3) Uptake 35 % (23.5-40.5)
[2022-04-20 13:01] LABS: Thyroid Stimulating Hormone 1.92 uIU/mL (0.465-4.68)
--- NOTE | 2022-04-20 13:01 | PC.NURSE ---
report called to [facility] on second floor at this time, states room is not ready at this time states they will come down to transport pt.
[2022-04-20 13:03] LABS: Acetaminophen < 10 ug/ml (10-30); Salicylate < 1.0 mg/dL (2.0-20.0)
[2022-04-20 13:11] LABS: Troponin I < 0.01 ng/ml (0.00-0.034)
--- NOTE | 2022-04-20 13:16 | PC.NURSE ---
patient arrived to floor by stretcher from ED
--- NOTE | 2022-04-20 13:35 | P.CONPHA_ITS ---
[facility] Pharmacy VTE Monitoring - Patient Demographics Admission date: 04/20/22 Report Date: 04/20/22 Time: 13:35 Allergies/Adverse Reactions: Patient Allergies levetiracetam [LEVETIRACETAM] Allergy (Unknown, Verified 10/18/18 16:44) tramadol [TRAMADOL] Allergy (Unknown, Verified 10/18/18 16:44) Height: 1.73 m Weight: 88.082 kg - VTE Risk Labs: VTE Related Lab Results Hgb 14.1 g/dL (14.1-18.0) 04/20/22 08:19 Hct 44.7 % (42.0-52.0) 04/20/22 08:19 Plt Count 300 K/mm3 (142-424) 04/20/22 08:19 BUN 12 mg/dl (9-20) 04/20/22 08:19 Creatinine 1.10 mg/dl (0.66-1.25) 04/20/22 08:19 Estimated Creat Clear 93 mL/min (50-200) 04/20/22 08:19 Clinical Trial Participant: No - Prophylaxis VTE Prophylaxis Ordered?: Yes Types of VTE Prophylaxis: TEDS Knee High
--- NOTE | 2022-04-20 13:35 | HMH.PHAINT ---
Addendum entered and electronically signed by Asha Lopez PharmD 04/20/22 14:09: called patient's 3 providers and compared home medication lists. discussed with pt's parents and pt in his room and reviewed home medication bottles. Original Note: HOME MEDICATION LIST VERIFIED USING LIST FROM [facility] AND PT INTERVIEW
[2022-04-20 16:57] LABS: Troponin I < 0.01 ng/ml (0.00-0.034)
--- NOTE | 2022-04-20 18:01 | PC.NURSE ---
Pt has been resting in bed with his eyes closed since arriving to the floor. He awakens easily to verbal and tactile stimuli. Speech is mumbled. He's been NSR/ST on telemetry. Pt's mother is at bedside. Bed is locked and in the lowest position, call light is within reach. He remains on seizure precautions.
--- NOTE | 2022-04-20 19:00 | HMH.HP ---
*Admission Date: 04/20/22 *Chief complaint: overdose *History of present illness: 41 year old male, poor historian. History gleaned from mother. Currently using suboxone chronically. Relays history of kratom abuse, roundabout about current usage. Relays thoughts of wishing to end his life last night, then taking extra doses of doxepin. He will not specify or quantify. Previous admission here for mental status changes. Ct brain neg. CTA chest neg. Nursing staff relays clearing mentation since arrival to floor. Remains withdrawn and not forthcoming with information. Not actively suicidal at time of interview. Primary care provider is Sae Etienne. [facility] History Medical History: Reports:: Hypertension Denies:: Cancer, Diabetes Mellitus Type 1, Diabetes Mellitus Type 2, MRSA *Have you ever received a pneumonia vaccine?: No *Have you received a flu vaccine this season?: No Other Medical History: Reports: Anemia Other Surgeries: Yes: Appendectomy, EGD Amputation: No Fractures: No - *Social History Last grade of school completed: Advanced degree Smoking Status: Never smoker Alcohol Intake: never Substance Use Type: opiates *Occupational Status:: unemployed Housing: house Household Members: other *Travel in the last 8 weeks: None Family Hx:: Anemia, Cancer, Coronary Artery Disease, Diabetes, Hyperlipidemia, Hypertension, Mental illness Review of Systems - Review of Systems Review of systems:: unable to obtain Meds Home Medications Medication Instructions Recorded Confirmed Type Buprenorphine HCl/Naloxone HCl 2 each SL DAILY 02/27/20 04/20/22 History [Suboxone 2 mg-0.5 mg Sl Film] buPROPion HCL [Bupropion Xl] 300 mg PO DAILY 02/07/22 04/20/22 History Atorvastatin Calcium [Lipitor 10mg 10 mg PO HS 04/20/22 04/20/22 History Tablet*] Buspirone HCl [Buspar 10mg 10 mg PO BID 04/20/22 04/20/22 History tablet] Doxepin HCl 150 mg PO HS 04/20/22 04/20/22 History Duloxetine HCl [Cymbalta 30mg 30 mg PO DAILY 04/20/22 04/20/22 History capsule] Ergocalciferol (Vitamin D2) 1,250 mcg PO DAILY 04/20/22 04/20/22 History [Vitamin D2] Ferrous Sulfate [Ferosul] 325 mg PO DAILY 04/20/22 04/20/22 History Metoprolol Succinate [Metoprolol 50 mg PO DAILY 04/20/22 04/20/22 History Succinate 50mg Tablet*] Testosterone Cypionate 1 ml IM .EVERY 2 WEEKS 04/20/22 04/20/22 History [Depo-Testosterone 200mg/mL Inj] Valsartan [Valsartan 80mg 80 mg PO DAILY 04/20/22 04/20/22 History Tablets] Allergies Allergy/AdvReac Type Severity Reaction Status Date / Time levetiracetam [LEVETIRACETAM] Allergy Unknown Verified 10/18/18 16:44 tramadol [TRAMADOL] Allergy Unknown Verified 10/18/18 16:44 Exam Vital signs and Labs for Last 24 Hours: Temp Pulse Resp BP Pulse Ox 98.5 F 89 15 105/60 L 95 04/20/22 15:20 04/20/22 18:00 04/20/22 18:00 04/20/22 18:00 04/20/22 18:00 Laboratory Results - last 24 hr 04/20/22 08:10: Specimen Source Right radial, O2 % Room air, ABG pH 7.37, ABG pCO2 44.5, ABG pO2 70.4 L, ABG HCO3 25.1, ABG Total CO2 26.5, ABG O2 Saturation 94, ABG Base Excess -0.2, Malik Test Acceptable 04/20/22 08:19: WBC 9.2, RBC 4.79, Hgb 14.1, Hct 44.7, MCV 93.4, MCH 29.3, MCHC 31.4 L, RDW 13.9, Plt Count 300, MPV 7.5, Neut % (Auto) 75.1, Lymph % (Auto) 18.2, [place] % (Auto) 5.0, Eos % (Auto) 1.0, Baso % (Auto) 0.6, Neut # (Auto) 6.9, Lymph # (Auto) 1.7, [place] # (Auto) 0.5, Eos # (Auto) 0.1, Baso # (Auto) 0.1 04/20/22 08:19: Sodium 136, Potassium 5.3 H, Chloride 103, Carbon Dioxide 24, Anion Gap 14.3, BUN 12, Creatinine 1.10, Estimated Creat Clear 93, Estimated GFR 75, Est GFR ( Amer) 90, Glucose 124 H, Calcium 9.3, Total Bilirubin 1.0, AST 79 H, ALT 59, Alkaline Phosphatase 119, Total Protein 7.4, Albumin 4.2, Globulin 3.2, Albumin/Globulin Ratio 1.3 04/20/22 08:19: Plasma/Serum Alcohol < 10 04/20/22 08:19: Troponin I < 0.01 04/20/22 08:27: Urine Opiates Screen Negative, Urine Methadone Screen Negative, Ur Ba
[2022-04-21] VITALS (8 sets, daily range): BP systolic 106–141; BP diastolic 55–91; PULSE 85–108; RESP 16–20; TEMP 36.8–37; O2SAT 93–99; BMI 30.7
--- NOTE | 2022-04-21 04:59 | PC.NURSE ---
pt has rested t/o most of shift, was not able to answer orientation questions at beginning of shift, but has since been able to answer appropriately, remains on room air, no complaints of SOA or pain, seizure pads and bed alarm on for safety
[2022-04-21 06:25] LABS: Chloride 110 mmol/L (98-107)
[2022-04-21 06:26] LABS: Potassium 4.2 mmoL/L (3.5-5.1); Sodium 140 mmol/L (136-145)
[2022-04-21 06:28] LABS: Alanine Aminotransferase 34 U/L (12-78); Alkaline Phosphatase 75 U/L (38-126); Anion Gap 5.2 mEq/L (5-15); Aspartate Amino Transferase 36 U/L (17-59); Bilirubin,Total 0.2 mg/dl (0.2-1.3); Blood Urea Nitrogen 11 mg/dl (9-20); Carbon Dioxide 29 mmol/L (22.0-30.0); Creatinine Clearance Estimated 143 mL/min (50-200); Estimated Glomerular Filt Rate 94 ml/min (>60); GFR (African American) 114 ML/MIN (>60)
[2022-04-21 06:29] LABS: Albumin Level 3.2 g/dl (3.5-5.0); Albumin/Globulin Ratio 1.3 (1.1-1.8); Globulin 2.4 g/dL (1.3-3.2); Glucose 88 mg/dl (74-100); Total Protein,Serum 5.6 g/dl (6.3-8.2)
--- NOTE | 2022-04-21 06:38 | PC.NURSE ---
took pt ice water and emptied da silva. pt had no other needs at this time.
--- NOTE | 2022-04-21 09:00 | HMH.EDGENADL ---
ED Disposition Clinical Impression: Altered mental status Qualifiers: Altered mental status type: unspecified Qualified Code(s): R41.82 - Altered mental status, unspecified Disposition: Admitted as Observation Condition on Discharge: Serious - Critical Care Critical Care Time: Yes Attestation: On 04/20/22, the high probability of a clinically significant, sudden or life threatening deterioration of the following system(s) required my full and direct attention, intervention and personal management. The time I documented below is in addition to time spent performing reported procedures but includes the following listed in this critical care notation. Vital system(s) involved:: Central Nervous System, Respiratory Failure My critical care processes included: Assessment & monitoring of V/S, Initial and Re-exams, Data Review/Interpretation, Coordinating Care, Medication Orders and management, Documentation Medical Decision Making - Medical Records Medical records reviewed: Yes: I reviewed the patient's medical records. - Carroll Inquiry Pt receiving controlled substance: No Vital Signs: 04/20/22 08:09 04/20/22 08:31 04/20/22 08:35 Temperature 96.5 F L Temperature Source Rectal Pulse Rate 131 H 126 H Pulse Rate [Apical] 124 H Respiratory Rate 14 19 16 Blood Pressure 132/75 112/63 Blood Pressure [Right Arm] 142/84 H Blood Pressure Mean Blood Pressure Mean [Right Arm] 103 Blood Pressure Source Automatic Cuff Automatic Cuff Blood Pressure Source [Right Arm] Automatic Cuff Blood Pressure Position Sitting Sitting Blood Pressure Position [Right Arm] Supine 02 Sat by Pulse Oximetry 98 98 99 Oxygen Delivery Method Room Air Room Air Room Air 04/20/22 09:12 04/20/22 09:36 04/20/22 09:47 Temperature Temperature Source Pulse Rate 125 H 135 H Pulse Rate [Apical] Respiratory Rate 20 Blood Pressure 104/85 L 132/66 Blood Pressure [Right Arm] Blood Pressure Mean 89 93 Blood Pressure Mean [Right Arm] Blood Pressure Source Blood Pressure Source [Right Arm] Blood Pressure Position Blood Pressure Position [Right Arm] 02 Sat by Pulse Oximetry 98 97 Oxygen Delivery Method Room Air Room Air 04/20/22 10:15 04/20/22 10:30 04/20/22 10:45 Temperature Temperature Source Pulse Rate 113 H 108 H Pulse Rate [Apical] Respiratory Rate 17 17 17 Blood Pressure 133/61 119/43 L 107/44 L Blood Pressure [Right Arm] Blood Pressure Mean 85 68 Blood Pressure Mean [Right Arm] Blood Pressure Source Blood Pressure Source [Right Arm] Blood Pressure Position Blood Pressure Position [Right Arm] 02 Sat by Pulse Oximetry 91 L 90 L Oxygen Delivery Method 04/20/22 11:00 04/20/22 11:15 04/20/22 11:30 Temperature Temperature Source Pulse Rate 107 H 111 H 127 H Pulse Rate [Apical] Respiratory Rate 17 17 15 Blood Pressure 114/47 L 124/59 L 131/71 Blood Pressure [Right Arm] Blood Pressure Mean 62 75 91 Blood Pressure Mean [Right Arm] Blood Pressure Source Blood Pressure Source [Right Arm] Blood Pressure Position Blood Pressure Position [Right Arm] 02 Sat by Pulse Oximetry 91 L 91 L 97 Oxygen Delivery Method 04/20/22 11:45 04/20/22 12:08 04/20/22 12:15 Temperature 98.0 F Temperature Source Rectal Pulse Rate Pulse Rate [Apical] Respiratory Rate 16 13 Blood Pressure 141/70 H 135/74 Blood Pressure [Right Arm] Blood Pressure Mean 86 84 Blood Pressure Mean [Right Arm] Blood Pressure Source Blood Pressure Source [Right Arm] Blood Pressure Position Blood Pressure Position [Right Arm] 02 Sat by Pulse Oximetry 95 95 Oxygen Delivery Method 04/20/22 12:30 04/20/22 12:45 04/20/22 13:00 Temperature Temperature Source Pulse Rate Pulse Rate [Apical] Respiratory Rate 14 13 13 Blood Pressure 119/72 132/82 123/74 Blood Pressure [Right Arm] Blood Pressure Mean 83 97 88 Blood
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
--- NOTE | 2022-04-21 11:22 | PC.NURSE ---
Called aand left message for Dr Castellon. asked if pt can come out of stepdown care. also notified that per behavioral health, pt is ok for discharge. they just stated that he does not need to be discharged on Doxepin.
--- NOTE | 2022-04-21 12:14 | HMH.DCSUM ---
General - General Admission date:: 04/20/22 Discharge date: 04/21/22 HPI HPI: 41 year old male, poor historian. History gleaned from mother. Currently using suboxone chronically. Relays history of kratom abuse, roundabout about current usage. Relays thoughts of wishing to end his life last night, then taking extra doses of doxepin. He will not specify or quantify. Previous admission here for mental status changes. Ct brain neg. CTA chest neg. Nursing staff relays clearing mentation since arrival to floor. Remains withdrawn and not forthcoming with information. Not actively suicidal at time of interview. Primary care provider is Sae Etienne. Hospital Course Hospital Course: patient was admitted for observation of mentation changes and further evaluation he was seen by Tori Montejo, [facility] mental status changes resolved by the morning plans for counseling as an outpatient were made Objective Vital signs: Temp Pulse Resp BP Pulse Ox 98.6 F 103 H 16 107/70 L 97 04/21/22 04:00 04/21/22 08:00 04/21/22 06:00 04/21/22 06:00 04/21/22 07:52 no acute distress - *Routine HEENT Exam Head: Present: normocephalic Eye: Present: EOMI, PERRL ENT: Present: mucous membranes moist - *Routine Neck Exam Present: supple - *Routine Respiratory Exam Present: CTA bilaterally - *Routine Cardiovascular Exam Present: RRR - *Routine Abdominal Exam Present: soft, normoactive bowel sounds. Absent: tenderness - *Routine Extremities Exam Absent: cyanosis, clubbing, edema - *Routine Skin Exam Present: warm. Absent: rash Results Labs on day of discharge: Labs from last 24 hours 04/21/22 04/20/22 04/20/22 05:26 16:05 12:35 Sodium 140 Potassium 4.2 D Chloride 110 H Carbon Dioxide 29 Anion Gap 5.2 BUN 11 Creatinine 0.90 Estimated Creat Clear 143 Estimated GFR 94 Est GFR ( Amer) 114 D Glucose 88 D Calcium 7.0 L Total Bilirubin 0.2 AST 36 D ALT 34 D Alkaline Phosphatase 75 Troponin I < 0.01 Total Protein 5.6 L Albumin 3.2 L D Globulin 2.4 Albumin/Globulin Ratio 1.3 TSH Free T4 Index Thyroxine (T4) T3 Uptake Salicylates < 1.0 L Acetaminophen < 10 L 04/20/22 04/20/22 12:35 09:22 Sodium Potassium Chloride Carbon Dioxide Anion Gap BUN Creatinine Estimated Creat Clear Estimated GFR Est GFR ( Amer) Glucose Calcium Total Bilirubin AST ALT Alkaline Phosphatase Troponin I < 0.01 Total Protein Albumin Globulin Albumin/Globulin Ratio TSH 1.92 Free T4 Index 2.6 L Thyroxine (T4) 7.3 T3 Uptake 35 Salicylates Acetaminophen Preliminary micro results at discharge 04/20/22 08:27 Urine Culture - Preliminary Urine,Catheterized NO GROWTH AFTER 24 HOURS DS: Diagnosis - Discharge Diagnosis (1) Ingestion of unknown medication Status: Acute Discharge Plan - Patient Discharge Instructions ACTIVITY: Continue current activity DIET: advance to your usual diet Patient Instructions: DI for Altered Mental Status - Follow up Plan Follow up with: Anne-Marie Sarmiento LPCA [LPCA] - 04/24/22 8:30 am Tori Montejo APRN [Nurse Practitioner] - 04/27/22 3:30 pm Disposition: Home, Self-Care Condition at discharge:: Improved Home Medications: Home Medications Medication Instructions Recorded Confirmed Type Buprenorphine HCl/Naloxone HCl 2 each SL DAILY 02/27/20 04/20/22 History [Suboxone 2 mg-0.5 mg Sl Film] buPROPion HCL [Bupropion Xl] 300 mg PO DAILY 02/07/22 04/20/22 History Atorvastatin Calcium [Lipitor 10mg 10 mg PO HS 04/20/22 04/20/22 History Tablet*] Buspirone HCl [Buspar 10mg 10 mg PO BID 04/20/22 04/20/22 History tablet] Doxepin HCl 150 mg PO HS 04/20/22 04/20/22 History Duloxetine HCl [Cymbalta 30mg 30 mg PO DAILY 04/20/22 04/20/22 History capsule] Ergocalciferol
--- NOTE | 2022-04-23 14:54 | CARE MANAGER ---
Contacted patient related to discharge from hospital. He denies any questions or concerns. JESSICA Leo
== END 2022-04-21 14:15 | disposition home or self-care (01) ==
LOC: ER 10:29 → 2ND 12:06
PROVIDERS: Admitting Provider Family Medicine; Emergency Provider Emergency Medicine; Visit Provider Family Medicine
DX: T50.901A Poisoning by unspecified drugs, medicaments and biological substances, accidental (unintentional), initial encounter (principal); I10 Essential (primary) hypertension; Z79.899 Other long term (current) drug therapy; R45.851 Suicidal ideations; F19.21 Other psychoactive substance dependence, in remission
CPT/HCPCS: 70450; 71045; 71275; 80053; 80305; 80329; 81001; 82803; 83605; 84436; 84443; 84479; 84484; 85025; 87040; 87086; 93005; 99285; C9803; G0378; J0574; Q9967; U0003; U0005

== ENCOUNTER 2022-05-15 15:26 | Inpatient (IN) | payer BC, SELFPAY ==
[2022-05-15] VITALS (21 sets, daily range): BP systolic 71–158; BP diastolic 29–91; PULSE 91–148; RESP 16–36; TEMP 34.3–37.7; O2SAT 96–100; BMI 27.2; BMI 28.0
--- NOTE | 2022-05-15 15:22 | ECG_ITS ---
APPROVED REPORT Exam: Resting ECG HR:131 bpm ECG Measurements Heart Rate 131 AXES QRSd 125 QRS 66 QT 350 T 50 QTc 427 Conclusion ATRIAL FLUTTER/TACHYCARDIA WITH RAPID VENTRICULAR RESPONSE POSSIBLE LATERAL MYOCARDIAL INFARCTION , PROBABLY OLD [30 ms Q WAVE IN I/aVL/V5/V6] POSSIBLE INFERIOR MYOCARDIAL INFARCTION , OF INDETERMINATE AGE [30 ms Q WAVE IN II/aVF] ABNORMAL ECG INTERPRETATION BASED ON A DEFAULT AGE OF 42 YEARS UNCONFIRMED REPORT Electronically signed by : Naveed Barrow MD 05/16/2022 09:50:44
--- NOTE | 2022-05-15 15:30 | CT_ITS ---
FINAL REPORT CLINICAL HISTORY: AMS COMPARISON: April 20, 2022 FINDINGS: Axial images of the head were obtained without contrast. Coronal reformatted images were also obtained.This study was performed with techniques to keep radiation doses as low as reasonably achievable (ALARA). Individualized dose reduction techniques using automated exposure control or adjustment of mA and/or kV according to the patient's size were employed. There is motion artifact on many of the images. There is no evidence of intracranial hemorrhage or mass. The ventricular size is within normal limits. There is no evidence of shift of the midline structures. No abnormal extra axial fluid collection is identified. No skull abnormality is seen on the bone window images. IMPRESSION: No acute intracranial abnormality. Reviewed, Interpreted and Dictated by Keith Metz III, MD Transcribed by Roberto Almeida Authenticated and [facility]
--- NOTE | 2022-05-15 15:33 | HMH.EDGENADL ---
Discharge Plan Disposition Patient Disposition: Admitted as Observation Clinical Impressions Clinical Impression: Overdose Discharge ED Provider: Boo Guo General Adult HPI General Chief complaint: Altered Mental Status Stated complaint: overdose Time Seen by Provider: 05/15/22 15:26 Mode of Arrival: EMS History of Present Illness HPI narrative: Patient is a 41-year-old male with a history of numerous previous overdoses presents today with altered mental status. EMS reports that his parents went over to check on him today and he was found down on the ground. They gave him 4 of Narcan which had minimal response but they do note some response. They state that he continues to localize to pain but he is not opening his eyes. Of note the patient was recently admitted for similar complaint about 3 weeks ago. Upon arrival he is tachycardic but not arousable. Resting history unobtainable due to patient condition and acuity of condition. Related Data Home Medications Medication Instructions Recorded Confirmed buprenorphine 2 mg-naloxone 0.5 mg 2 each sublingual DAILY Withdrawl 02/27/20 05/15/22 sublingual film bupropion HCl 300 mg 24 hr tablet, 300 mg PO DAILY Depression 02/07/22 05/15/22 extended release atorvastatin 10 mg tablet 10 mg PO HS High cholesterol 04/20/22 05/15/22 buspirone 10 mg tablet 10 mg PO BID Depression 04/20/22 05/15/22 duloxetine 30 mg capsule,delayed 30 mg PO DAILY Depression 04/20/22 05/15/22 release ferrous sulfate 325 mg (65 mg 325 mg PO DAILY Supplement 04/20/22 05/15/22 iron) tablet testosterone cypionate 200 mg/mL 1 ml IM .EVERY 2 WEEKS Supplement 04/20/22 05/15/22 intramuscular oil valsartan 80 mg tablet 80 mg PO DAILY High blood pressure 04/20/22 05/15/22 Allergies Allergy/AdvReac Type Severity Reaction Status Date / Time levetiracetam [LEVETIRACETAM] Allergy Unknown Verified 04/29/22 08:53 tramadol [TRAMADOL] Allergy Unknown Verified 04/29/22 08:53 [facility] Social History Smoking Status: Former smoker second hand exposure: No alcohol intake: never substance use type: opiates current occupational status: unemployed Travel in the last 8 weeks: None household members: other housing: house caffeine: Yes ROS Obtained: Yes unobtainable due to mental status Physical Exam General General appearance: lethargic and obtunded Head Head exam: atraumatic, normocephalic and normal inspection Eye Eye exam: Present normal appearance, PERRL and EOMI ENT ENT exam: Present normal exam, normal oropharynx, mucous membranes moist, TM's normal bilaterally and normal external ear exam Neck Neck exam: Present normal inspection, full ROM and trachea midline; Absent meningismus or lymphadenopathy Chest Chest inspection: Present normal inspection and symmetric chest wall rise; Absent tenderness Respiratory Respiratory exam: Present normal lung sounds bilaterally; Absent respiratory distress Cardiovascular Cardiovascular exam: Present normal rhythm and tachycardia; Absent JVD Abdominal Exam Abdominal exam: Present soft; Absent distention, tenderness or guarding Extremities Exam Extremities exam: Present normal inspection, full ROM and normal capillary refill; Absent calf tenderness Back Exam Back exam: Present normal inspection; Absent tenderness Neurological Exam Neurological exam: Present other (GCS 9 on arrival); Absent alert or oriented X3 Expanded Neurological Exam Patient oriented to: Absent person, place or time Coma scale eye opening: To pain Coma scale motor response: Localizes to pain Coma scale verbal response: Incomprehensible Coma scale total: 9 Skin Skin exam: Present warm, dry, intact and normal color Lymphatic Lymphatic Findings: no adenopathy Medical Decision Making Medical Records Medical records reviewed: Yes I reviewed the patient's medical records. [place] Inquiry Pt receiving controlled substance: No Vital Signs:
--- NOTE | 2022-05-15 15:36 | XR_ITS ---
FINAL REPORT CLINICAL HISTORY: ams COMPARISON: April 20, 2022 FINDINGS: The heart size is normal. The mediastinum is normal. There is elevation of the right hemidiaphragm. Mild right lung base opacity favors atelectasis. There are no pleural effusions. There is no pneumothorax. There is no osseous abnormality. IMPRESSION: Mild right base opacity favoring atelectasis. Reviewed, Interpreted and Dictated by Kieth Metz III, MD Transcribed by Roberto Almeida Authenticated and . [facility]
[2022-05-15 15:38] LABS: Microscopic, Urine URINE MICROSCOPIC (MICROSCOPIC)
[2022-05-15 15:41] LABS: Basophils # 0.1 K/mm3 (0-0.2); Basophils % 0.6 % (0.1-2.0); Eosinophils # 0.1 K/mm3 (0.0-0.4); Eosinophils % 0.5 % (0.1-12.0); Hematocrit 42.4 % (42.0-52.0); Hemoglobin 14.1 g/dL (14.1-18.0); Lymphocytes # 1.4 K/mm3 (0.7-4.5); Lymphocytes % 14.5 % (10-50); Mean Corpuscular HGB Conc 33.2 g/dL (31.8-35.4); Mean Corpuscular Hemoglobin 29.1 pg (27.0-31.2); Mean Corpuscular Volume 87.8 fl (80-94); Mean Platelet Volume 7.7 fl (7.4-10.4); Monocytes # 0.5 K/mm3 (0.1-1.0); Monocytes % 4.8 % (1.7-9.3); Neutrophils # 7.9 K/mm3 (1.8-7.8); Neutrophils % 79.5 % (37.0-80.0); Platelet Count 261 K/mm3 (142-424); Red Blood Count 4.83 M/mm3 (4.60-6.20); Red Cell Distribution Width 13.5 % (11.5-17.5)
[2022-05-15 15:42] LABS: Appearance,Urine CLEAR (Clear); Bilirubin,Urine Negative (Negative); Blood, Urine Negative (Negative); Color,Urine YELLOW (Yellow); Glucose,Urine (UA) Negative (Negative); Ketones,Urine TRACE (Negative); Leukocyte Esterase,Urine Negative (Negative); Nitrate,Urine Negative (Negative); Protein,Urine Negative (Negative); Specific Gravity, Urine >= 1.030 (1.005-1.030); Urobilinogen,Urine 0.2 EU/dl (0.2)
[2022-05-15 15:46] LABS: Chloride 105 mmol/L (98-107)
[2022-05-15 15:47] LABS: Potassium 4.4 mmoL/L (3.5-5.1); Sodium 142 mmol/L (136-145); VBG HCO3 27.1 mmol/L (23-30); VBG Oxygen Saturation 98.2 % (50-70); VBG PCO2 53.4 mmol/L (35-51); VBG PH 7.32 mmol/L (7.31-7.41); VBG PO2 119.9 mmol/L (28-40); VBG Total CO2 28.7 mmol/L (23-27)
[2022-05-15 15:49] LABS: Alanine Aminotransferase 33 U/L (12-78); Alkaline Phosphatase 120 U/L (38-126); Anion Gap 10.4 mEq/L (5-15); Aspartate Amino Transferase 36 U/L (17-59); Bilirubin,Total 0.2 mg/dl (0.2-1.3); Blood Urea Nitrogen 14 mg/dl (9-20); Carbon Dioxide 31 mmol/L (22.0-30.0); Creatinine Clearance Estimated 134 mL/min (50-200); Estimated Glomerular Filt Rate 94 ml/min (>60); GFR (African American) 114 ML/MIN (>60)
[2022-05-15 15:50] LABS: Acetaminophen < 10 ug/ml (10-30); Albumin Level 4.4 g/dl (3.5-5.0); Albumin/Globulin Ratio 1.5 (1.1-1.8); Calcium 8.8 mg/dl (8.4-10.2); Creatine Kinase 114 U/L (55-170); Glucose 117 mg/dl (74-100); Salicylate < 1.0 mg/dL (2.0-20.0); Total Protein,Serum 7.4 g/dl (6.3-8.2)
[2022-05-15 15:53] LABS: Bacteria,Urine Trace /lpf; Mucus,Urine 2+ /lpf; RBC,Urine Occasional #/hpf (0-3); Squamous Epithelial Cell,Urine Occasional #/hpf (0-5)
--- NOTE | 2022-05-15 15:53 | PC.NURSE ---
pt to RAD for CT SCAN
[2022-05-15 15:55] LABS: Benzodiazepines Screen,Urine Negative ng/ml (<200)
[2022-05-15 15:56] LABS: Amphetamine/Metha Screen,Urine Negative ng/ml (<1000); Barbiturates Screen,Urine Negative ng/ml (<200)
[2022-05-15 15:57] LABS: Methadone Screen,Urine Negative ng/ml (<300)
[2022-05-15 15:58] LABS: Cannabinoid Screen,Urine Negative ng/ml (<50); Cocaine Screen,Urine Negative ng/ml (<300)
[2022-05-15 16:00] LABS: Opiate Screen,Urine Negative ng/ml (<300); Phencyclidine Screen,Urine Negative ng/ml (<25)
--- NOTE | 2022-05-15 16:00 | PC.NURSE ---
family at bedside. updated on plan of care
[2022-05-15 16:09] LABS: Troponin I < 0.01 ng/ml (0.00-0.034)
--- NOTE | 2022-05-15 16:25 | PC.NURSE ---
ERMD To Intubate Pt
--- NOTE | 2022-05-15 16:30 | PC.NURSE ---
pt with grunting sounds, spastic movements, white froth around lips.
--- NOTE | 2022-05-15 16:50 | PC.NURSE ---
propofol increased to 30mcg
--- NOTE | 2022-05-15 16:52 | XR_ITS ---
PROCEDURE INFORMATION: Exam: XR Chest Exam date and time: 05/15/2022 4:55 PM Age: 41 years old Clinical indication: Device placement; Ett placement (vent status); Additional info: Post intubation TECHNIQUE: Imaging protocol: Radiologic exam of the chest. Views: 1 view. AP portable supine exam 4:56 p.m. COMPARISON: CR XR CHEST PORTABLE 05/15/2022 3:53 PM FINDINGS: Tubes, catheters and devices: An endotracheal tube is been inserted, distal tip projected 4.2 cm above the elías in satisfactory position. Overlying rn cardiac electrodes. Lungs: Chronic elevated right diaphragm with right lower pulmonary volume loss. No focal consolidation. Prominent central bronchovascular markings probably due to hypoventilation. Pleural spaces: Unremarkable. No significant pleural effusion. No pneumothorax. Heart/Mediastinum: Right paratracheal adenopathy described on recent CT of 04/20/2022 is not well visualized on this portable chest x-ray. Bones/joints: Minimal spinal degenerative changes. No definite acute fractures. IMPRESSION: 1. Endotracheal tube in satisfactory position. 2. Additional nonemergency and chronic findings as above.
--- NOTE | 2022-05-15 17:10 | PC.NURSE ---
propofol 50mcg
[2022-05-15 17:12] LABS: Coronavirus 19, PCR Not Detected (NotDetected); Influenza A, PCR Not Detected (NotDetected); Influenza B, PCR Not Detected (NotDetected)
--- NOTE | 2022-05-15 17:58 | PC.NURSE ---
paged for service
[2022-05-15 18:03] LABS: ABG Base Excess 0.2 mmol/L (-2.4-2.3); ABG HCO3 25.5 mmhg (22.0-26.0); ABG Oxygen Saturation 96 % (90-100); ABG PCO2 45.4 mmhg (35.0-45.0); ABG PH 7.37 mmol/L (7.35-7.45); ABG PO2 83.7 mmhg (80-100); ABG TCO2 26.9 mmhg (23-27)
[2022-05-15 18:06] LABS: Allen's Test Patient Unable; Oxygen 60% %; PEEP 6; Source Left Radial; Tidal Volume 380; Vent Rate 16
--- NOTE | 2022-05-15 18:24 | PC.NURSE ---
AHSAN CONKLIN speaking with nigel
[2022-05-15 18:30] LABS: Troponin I < 0.01 ng/ml (0.00-0.034)
--- NOTE | 2022-05-15 18:32 | PC.NURSE ---
talked to house for ICU ADMIT Fitz Byrnes
--- NOTE | 2022-05-15 18:47 | PC.NURSE ---
attempted to call report
--- NOTE | 2022-05-15 19:09 | PC.NURSE ---
report called to floor
--- NOTE | 2022-05-15 19:17 | PC.NURSE ---
propofol restarted at 10mcg
--- NOTE | 2022-05-15 19:34 | PC.NURSE ---
patient up to floor via stretcher @ this time.
--- NOTE | 2022-05-15 20:02 | PC.NURSE ---
notified about possible seizure activity. HR tachy. BP stable at 134/78. Propofol titrated to 30 mcg/kg/min. Fentanyl restarted @ 10 ml/hr. Fentanyl previously placed on standby in ER due to hypotension. No new orders at this time. Dr Byrnes stated he will be coming over to round.
[2022-05-15 20:25] LABS: POC Glucose,Bedside 72 (70-110)
--- NOTE | 2022-05-15 20:52 | EXP.HP ---
History of Present Illness *Admission Date: 05/15/22 *Reason for visit:: Altered mental status *History of present illness: This 41-year-old white male has a history of drug abuse and episodes of drug overdose. He was brought to the emergency room tonight by his parents who found him unresponsive. They administered Narcan with minimal response.He received additional Narcan in the emergency room. He seemed to become more lethargic and it was the yard physician's judgment that he should be intubated. He had started to froth at the mouth and there was concern for heart failure.The ER physician gave a [place] Coma Scale of 9.The patient's drug urine screen was negative but there is a history of abuse of kratom, and in the opinion of the ER physician and overdose with kratom was a distinct likelihood.The ER physician Dr. Guo has had experience previously with craton overdoses. He also consulted with the [facility] and with poison control as he was making his judgments on treatment. After intubation the patient was admitted to the stepdown unit on the second floor of [facility].He is receiving propofol and fentanyl.At the present time he is resting quietly but there has been some concern by the nursing staff that he could have shown some seizure type of activity, though subtle. The patient has a history of depression and is treated for that. He is maintained on Suboxone also for his history of narcotic abuse. [facility] Medical History (Updated 05/15/22 @ 21:06 by David Byrnes MD) Encounter for monitoring Suboxone maintenance therapy Social History Smoking Status: Former smoker second hand exposure: No alcohol intake: never substance use type: opiates current occupational status: unemployed Travel in the last 8 weeks: None household members: other housing: house caffeine: Yes Review of Systems Review of Systems Review of systems:: unable to obtain Meds Home Medications and Allergies Home Medications Medication Instructions Recorded Confirmed Type buprenorphine 2 mg-naloxone 0.5 mg 2 each sublingual DAILY Withdrawl 02/27/20 05/15/22 History sublingual film bupropion HCl 300 mg 24 hr tablet, 300 mg PO DAILY Depression 02/07/22 05/15/22 History extended release atorvastatin 10 mg tablet 10 mg PO HS High cholesterol 04/20/22 05/15/22 History buspirone 10 mg tablet 10 mg PO BID Depression 04/20/22 05/15/22 History duloxetine 30 mg capsule,delayed 30 mg PO DAILY Depression 04/20/22 05/15/22 History release ferrous sulfate 325 mg (65 mg 325 mg PO DAILY Supplement 04/20/22 05/15/22 History iron) tablet testosterone cypionate 200 mg/mL 1 ml IM .EVERY 2 WEEKS Supplement 04/20/22 05/15/22 History intramuscular oil valsartan 80 mg tablet 80 mg PO DAILY High blood pressure 04/20/22 05/15/22 History New Prescriptions to Start Prescriptions: Allergies Allergy/AdvReac Type Severity Reaction Status Date / Time levetiracetam [LEVETIRACETAM] Allergy Unknown Verified 04/29/22 08:53 tramadol [TRAMADOL] Allergy Unknown Verified 04/29/22 08:53 Exam Data for Last 24 hours Vital signs and Labs for Last 24 Hours: Temp Pulse Resp BP Pulse Ox 94 F L 130 H 16 124/58 L 100 05/15/22 19:30 05/15/22 19:30 05/15/22 19:30 05/15/22 19:30 05/15/22 19:30 Laboratory Results - last 24 hr 05/15/22 15:30: VBG pH 7.32, VBG pCO2 53.4 H, VBG pO2 119.9 H, VBG HCO3 27.1, VBG Total CO2 28.7 H, VBG O2 Saturation 98.2 H, VBG Base Excess 1.0 05/15/22 15:30: WBC 10.0, RBC 4.83, Hgb 14.1, Hct 42.4, MCV 87.8, MCH 29.1, MCHC 33.2, RDW 13.5, Plt Count 261, MPV 7.7, Neut % (Auto) 79.5, Lymph % (Auto) 14.5, [place] % (Auto) 4.8, Eos % (Auto) 0.5, Baso % (Auto) 0.6, Neut # (Auto) 7.9 H, Lymph # (Auto) 1.4, [place] # (Auto) 0.5, Eos # (Auto) 0.1, Baso # (Auto) 0.1 05/15/22 15:30: Sodium 142, Potassium 4.4, Chloride 105, Carbon Dioxide
[2022-05-15 22:59] LABS: Troponin I < 0.01 ng/ml (0.00-0.034)
--- NOTE | 2022-05-15 23:57 | PC.NURSE ---
Poison control called for update on pt.
[2022-05-16] VITALS (35 sets, daily range): BP systolic 85–124; BP diastolic 38–72; PULSE 94–122; RESP 16–23; TEMP 36.8–38.7; O2SAT 94–100; BMI 28.0
--- NOTE | 2022-05-16 00:13 | PC.NURSE ---
MD Byrnes notified of pt decline in BP after multiple titrations of propofol. Currently infusing @ 5 mcg/kg/min. Fentanyl has been on standby since 2030. Urine output is declining. Hands cool to touch. Nail beds cyanotic. New orders received to give LR 200 ml bolus. Change fluids from LR @ 75 ml/hr to LR @ 125 ml/hr.
--- NOTE | 2022-05-16 01:40 | PC.NURSE ---
notified at 0127 that pt is febrile with temp of 101.7. Contiues to be tachycardic. BP is hypotensive to soft. MAP is below 65. Remains tachycardic. Urine output is 20 ml over 1.5 hr. New orders received to give additional 200 ml bolus of LR. Tylenol 650 mg suppository Q4 hrs as needed for fever above 101. Pt is currently on Propofol @ 3mcg/kg/min. Pt is opening eyes and responding when spoken too and answering by nodding head. Orders carried out.
[2022-05-16 02:49] LABS: POC Glucose,Bedside 91 (70-110)
--- NOTE | 2022-05-16 03:10 | PC.NURSE ---
At 0214, Pt became agitated and tried to pull ETT. Propofol was titrated up. It is currently infusing @ 5 mcg/kg/min. BP is currently stable. 97/47. Pt is currently lightly sedated with some light movement of extremities at times. Hand mitts in place for pt safety.
--- NOTE | 2022-05-16 04:20 | PC.NURSE ---
MD notified that pt qualifies for meeting sepsis. New orders received to get blood Cx, Lactic and place pt on Rocephin 1Gram.
--- NOTE | 2022-05-16 05:05 | PC.NURSE ---
Blood Cx and Lactic obtained prior to hanging antibiotics.
[2022-05-16 05:06] LABS: Basophils % 0.1 % (0.1-2.0); Eosinophils % 0.2 % (0.1-12.0); Hematocrit 33.7 % (42.0-52.0); Lymphocytes # 1.3 K/mm3 (0.7-4.5); Lymphocytes % 8.3 % (10-50); Mean Corpuscular HGB Conc 32.9 g/dL (31.8-35.4); Mean Corpuscular Hemoglobin 29.1 pg (27.0-31.2); Mean Corpuscular Volume 88.5 fl (80-94); Mean Platelet Volume 8.3 fl (7.4-10.4); Monocytes # 0.5 K/mm3 (0.1-1.0); Monocytes % 3.3 % (1.7-9.3); Neutrophils # 13.2 K/mm3 (1.8-7.8); Platelet Count 239 K/mm3 (142-424); Red Blood Count 3.81 M/mm3 (4.60-6.20); Red Cell Distribution Width 13.9 % (11.5-17.5)
[2022-05-16 05:07] LABS: Hemoglobin 11.1 g/dL (14.1-18.0)
[2022-05-16 05:08] LABS: MANUAL DIFFERENTIAL MANUAL DIFFERENTIAL (MANUAL DIFF)
[2022-05-16 05:09] LABS: Chloride 103 mmol/L (98-107); Potassium 4.2 mmoL/L (3.5-5.1); Sodium 137 mmol/L (136-145)
[2022-05-16 05:12] LABS: Anion Gap 8.2 mEq/L (5-15); Blood Urea Nitrogen 16 mg/dl (9-20); Carbon Dioxide 30 mmol/L (22.0-30.0); Creatinine Clearance Estimated 125 mL/min (50-200); Estimated Glomerular Filt Rate 83 ml/min (>60); GFR (African American) 101 ML/MIN (>60); Glucose 107 mg/dl (74-100); Lactic Acid 1.1 mmol/L (0.7-2.1)
[2022-05-16 05:13] LABS: Calcium 7.5 mg/dl (8.4-10.2)
[2022-05-16 05:19] LABS: Magnesium 1.5 mg/dl (1.6-2.3)
[2022-05-16 05:25] LABS: Lymphocytes % 9 % (10-50); Neutrophils % 72 % (42-76); Platelet Estimate Normal; RBC Morphology Normal; Total Cells Counted 100
--- NOTE | 2022-05-16 06:22 | PC.NURSE ---
titration Fentanyl 2035 5 mcg/hr 2130 standby Propofol 2034 20 mcg/kg/min 2130 10 mcg/kg/min 2220 6 mcg/kg/min 0000 5 mcg/kg/min 0100 4 mcg/kg/min 0130 3 mcg/kg/min 0214 5 mcg/kg/min 0500 4 mcg/kg/min
--- NOTE | 2022-05-16 07:00 | XR_ITS ---
PROCEDURE INFORMATION: Exam: XR Chest Exam date and time: 05/16/2022 6:12 AM Age: 41 years old Clinical indication: Device placement; Ng tube; Additional info: Intubated check tube placements TECHNIQUE: Imaging protocol: Radiologic exam of the chest. Views: 1 view. COMPARISON: CR XR CHEST PORTABLE 05/15/2022 4:55 PM FINDINGS: Tubes, catheters and devices: Endotracheal tube terminates 3.4 cm above the elías. An enteric feeding tube is present, with its tip located in the stomach in good position. Lungs: Opacities in both opacity in the right base may represent atelectasis or pneumonia.. Pleural spaces: Unremarkable. No pleural effusion. No pneumothorax. Heart/Mediastinum: Unremarkable. No cardiomegaly. Bones/joints: Unremarkable. IMPRESSION: 1. Endotracheal tube terminates 3.4 cm above the elías. 2. Opacities in both opacity in the right base may represent atelectasis or pneumonia..
[2022-05-16 07:12] LABS: ABG Base Excess 2.1 mmol/L (-2.4-2.3); ABG HCO3 27.2 mmhg (22.0-26.0); ABG Oxygen Saturation 84 % (90-100); ABG PCO2 46.2 mmhg (35.0-45.0); ABG PH 7.39 mmol/L (7.35-7.45); ABG TCO2 28.6 mmhg (23-27)
[2022-05-16 07:14] LABS: Allen's Test Patient Unable; Oxygen 50 %; PEEP 6; Source Right Radial; Tidal Volume 380; Vent Rate 16
[2022-05-16 07:17] LABS: ABG PO2 49.2 mmhg (80-100)
--- NOTE | 2022-05-16 07:37 | PC.NURSE ---
Pt became agitated while RT was performing suctioning and lavage. Propofol was titrated to 10 mcg/kg/min. Report given to Roland Nguyen RN.
[2022-05-16 08:29] LABS: POC Glucose,Bedside 112 (70-110)
--- NOTE | 2022-05-16 10:44 | EXP.ACUTE.PN ---
Subjective *Date: 05/16/22 *Time: 10:44 Interval history: The patient remained on ventilator through the night. His blood pressures remained low until early this morning. He developed a fever and with tachycardia and the hypotension and the fever triggered for sepsis. He was administered IV fluids accordingly and started on Rocephin. With the administration of high-volume fluids his blood pressure came up and has stabilized apparently. He does not seem to be much more alert. His parents are in the room with him this morning. We discussed some of his past history. There is a past history of some lung disease. This is reflected in his chest x-ray which shows elevation of the right hemidiaphragm. He is comfortable on the ventilator. His blood gas this morning seems to indicate mixed venous sampling since his oxygen saturation of 84% does not match what he is showing on his oximetry continuous monitor. His pH is normal. Medical Exam Vital signs and Labs for Last 24 Hours: Temp Pulse Resp BP Pulse Ox FiO2 99.2 F 97 H 18 107/60 L 100 50 05/16/22 08:00 05/16/22 10:00 05/16/22 10:21 05/16/22 10:00 05/16/22 10:21 05/16/22 10:21 Laboratory Results - last 24 hr 05/15/22 15:30: VBG pH 7.32, VBG pCO2 53.4 H, VBG pO2 119.9 H, VBG HCO3 27.1, VBG Total CO2 28.7 H, VBG O2 Saturation 98.2 H, VBG Base Excess 1.0 05/15/22 15:30: WBC 10.0, RBC 4.83, Hgb 14.1, Hct 42.4, MCV 87.8, MCH 29.1, MCHC 33.2, RDW 13.5, Plt Count 261, MPV 7.7, Neut % (Auto) 79.5, Lymph % (Auto) 14.5, [place] % (Auto) 4.8, Eos % (Auto) 0.5, Baso % (Auto) 0.6, Neut # (Auto) 7.9 H, Lymph # (Auto) 1.4, [place] # (Auto) 0.5, Eos # (Auto) 0.1, Baso # (Auto) 0.1 05/15/22 15:30: Sodium 142, Potassium 4.4, Chloride 105, Carbon Dioxide 31 H, Anion Gap 10.4, BUN 14, Creatinine 0.90, Estimated Creat Clear 134, Estimated GFR 94, Est GFR ( Amer) 114, Glucose 117 H, Calcium 8.8, Magnesium 2.0, Total Bilirubin 0.2, AST 36, ALT 33, Alkaline Phosphatase 120, Troponin I < 0.01, Total Protein 7.4 D, Albumin 4.4, Globulin 3.0, Albumin/Globulin Ratio 1.5, Salicylates < 1.0 L, Acetaminophen < 10 L 05/15/22 15:30: Total Creatine Kinase 114 05/15/22 15:34: Urine Color Yellow, Urine Appearance Clear, Urine pH 6.0, Ur Specific [place] >= 1.030, Urine Protein Negative, Urine Glucose (UA) Negative, Urine Ketones Trace, Urine Blood Negative, Urine Nitrate Negative, Urine Bilirubin Negative, Urine Urobilinogen 0.2, Ur Leukocyte Esterase Negative, Urine RBC Occasional, Urine WBC 3-5, Ur Squamous Epith Cells Occasional, Urine Bacteria Trace, Urine Mucus 2+ 05/15/22 15:34: Urine Opiates Screen Negative, Urine Methadone Screen Negative, Ur Barbituates Screen Negative, Ur Phencyclidine Scrn Negative, Ur Amphetamines Screen Negative, U Benzodiazepines Scrn Negative, Urine Cocaine Screen Negative, U Marijuana (THC) Screen Negative 05/15/22 17:01: SARS-CoV-2 (PCR) Not detected, Influenza A Untype (PCR) Not detected, Influenza Type B (PCR) Not detected 05/15/22 17:42: Troponin I < 0.01 05/15/22 18:00: Specimen Source Left radial, O2 % 60%, ABG pH 7.37, ABG pCO2 45.4 H, ABG pO2 83.7, ABG HCO3 25.5, ABG Total CO2 26.9, ABG O2 Saturation 96, ABG Base Excess 0.2, Malik Test Patient unable, Vent Rate 16, Tidal Volume 380, PEEP 6 05/15/22 20:18: POC Glucose 72 05/15/22 21:42: Troponin I < 0.01 05/16/22 02:42: POC Glucose 91 05/16/22 04:55: WBC 15.0 H D, RBC 3.81 L, Hgb 11.1 L D, Hct 33.7 L, MCV 88.5, MCH 29.1, MCHC 32.9, RDW 13.9, Plt Count 239, MPV 8.3, Neut % (Auto) 88.0 H, Lymph % (Auto) 8.3 L, [place] % (Auto) 3.3, Eos % (Auto) 0.2, Baso % (Auto) 0.1, Neut # (Auto) 13.2 H, Lymph # (Auto) 1.3, [place] # (Auto) 0.5, Eos # (Auto) 0.0, Baso # (Auto) 0.0, Total Counted 100, Neutrophils % (Manual) 72, Band Neutrophils % 19.0 H, Lymphocytes % (Manual) 9 L, Platelet Estimate Normal, RBC Morphology Normal 05/16/22 04:55: Sodium 137, Potassium 4.2, Chloride 103, Carbon Dioxide 30, Anion Gap 8.2, BUN 16, Creatinine 1.00, Estimated Creat Clear 125, E
--- NOTE | 2022-05-16 13:22 | PC.NURSE ---
1030- Propofol weaned to off at this time 1120- Patient alert, able to follow commands, can move all extremities, nod yes and no, and answer questions appropriately, switched to SBT at this time 1310- Patient extubated to 3LNC at this time per MD order, patient tolerated well current O2 saturations 94%, RR 16
--- NOTE | 2022-05-16 13:53 | EXP.PHA.VTE ---
[facility] Pharmacy VTE Monitoring Patient Demographics Admission date: 05/16/22 Report Date: 05/16/22 Time: 13:53 Patient Allergies levetiracetam [LEVETIRACETAM] Allergy (Unknown, Verified 04/29/22 08:53) tramadol [TRAMADOL] Allergy (Unknown, Verified 04/29/22 08:53) Height: 1.78 m Weight: 89.04 kg Current Active Problems (Updated 05/16/22 @ 10:51 by David Byrnes MD) Sepsis associated hypotension (Acute) Sepsis (Acute) Ingestion of unknown medication (Acute) Altered mental status (Acute) Noncompliance with medication treatment due to abuse of medication (Acute) History of opioid abuse (Acute) MDD (major depressive disorder), recurrent episode (Acute) Generalized anxiety disorder with panic attacks (Acute) Overdose (Acute) Dependence on respirator [ventilator] status (Acute) VTE Risk Labs: VTE Related Lab Results Hgb 11.1 g/dL (14.1-18.0) L D 05/16/22 04:55 Hct 33.7 % (42.0-52.0) L 05/16/22 04:55 Plt Count 239 K/mm3 (142-424) 05/16/22 04:55 BUN 16 mg/dl (9-20) 05/16/22 04:55 Creatinine 1.00 mg/dl (0.66-1.25) 05/16/22 04:55 Estimated Creat Clear 125 mL/min (50-200) 05/16/22 04:55 VTE Risk Level: Moderate Risk Prophylaxis Types of VTE Prophylaxis: Pharmacological Pharmacologic Type: Enoxaparin
--- NOTE | 2022-05-16 15:51 | EXP.ACUTE.PN ---
Subjective *Date: 05/16/22 *Time: 15:51 Interval history: The patient was weaned off propofol. He became awake and apparently alert enough for extubation. Extubation was accomplished at 1310 without difficulty. The patient is awake alert and responsive. He reports that he overdosed on doxepin. He had 75 mg tablets and he states that he took 10 of these. I would note that, thankfully, we did not see heart rhythm disturbances which can be present with doxepin overdose. He denied recent use of Kratom and denied overdose on that substance. Medical Exam Vital signs and Labs for Last 24 Hours: Temp Pulse Resp BP Pulse Ox FiO2 98.6 F 99 H 18 115/60 98 50 05/16/22 12:00 05/16/22 15:00 05/16/22 15:00 05/16/22 15:00 05/16/22 15:00 05/16/22 13:00 Laboratory Results - last 24 hr 05/15/22 15:30: VBG pH 7.32, VBG pCO2 53.4 H, VBG pO2 119.9 H, VBG HCO3 27.1, VBG Total CO2 28.7 H, VBG O2 Saturation 98.2 H, VBG Base Excess 1.0 05/15/22 15:30: Troponin I < 0.01 05/15/22 15:34: Urine RBC Occasional, Urine WBC 3-5, Ur Squamous Epith Cells Occasional, Urine Bacteria Trace, Urine Mucus 2+ 05/15/22 15:34: Urine Opiates Screen Negative, Urine Methadone Screen Negative, Ur Barbituates Screen Negative, Ur Phencyclidine Scrn Negative, Ur Amphetamines Screen Negative, U Benzodiazepines Scrn Negative, Urine Cocaine Screen Negative, U Marijuana (THC) Screen Negative 05/15/22 17:01: SARS-CoV-2 (PCR) Not detected, Influenza A Untype (PCR) Not detected, Influenza Type B (PCR) Not detected 05/15/22 17:42: Troponin I < 0.01 05/15/22 18:00: Specimen Source Left radial, O2 % 60%, ABG pH 7.37, ABG pCO2 45.4 H, ABG pO2 83.7, ABG HCO3 25.5, ABG Total CO2 26.9, ABG O2 Saturation 96, ABG Base Excess 0.2, Malik Test Patient unable, Vent Rate 16, Tidal Volume 380, PEEP 6 05/15/22 20:18: POC Glucose 72 05/15/22 21:42: Troponin I < 0.01 05/16/22 02:42: POC Glucose 91 05/16/22 04:55: WBC 15.0 H D, RBC 3.81 L, Hgb 11.1 L D, Hct 33.7 L, MCV 88.5, MCH 29.1, MCHC 32.9, RDW 13.9, Plt Count 239, MPV 8.3, Neut % (Auto) 88.0 H, Lymph % (Auto) 8.3 L, Power % (Auto) 3.3, Eos % (Auto) 0.2, Baso % (Auto) 0.1, Neut # (Auto) 13.2 H, Lymph # (Auto) 1.3, Power # (Auto) 0.5, Eos # (Auto) 0.0, Baso # (Auto) 0.0, Total Counted 100, Neutrophils % (Manual) 72, Band Neutrophils % 19.0 H, Lymphocytes % (Manual) 9 L, Platelet Estimate Normal, RBC Morphology Normal 05/16/22 04:55: Sodium 137, Potassium 4.2, Chloride 103, Carbon Dioxide 30, Anion Gap 8.2, BUN 16, Creatinine 1.00, Estimated Creat Clear 125, Estimated GFR 83, Est GFR ( Amer) 101, Glucose 107 H, Calcium 7.5 L, Magnesium 1.5 L D 05/16/22 04:55: Lactate 1.1 05/16/22 07:00: Specimen Source Right radial, O2 % 50, ABG pH 7.39, ABG pCO2 46.2 H, ABG pO2 49.2 L, ABG HCO3 27.2 H, ABG Total CO2 28.6 H, ABG O2 Saturation 84 L*, ABG Base Excess 2.1, Malik Test Patient unable, Vent Rate 16, Tidal Volume 380, PEEP 6 05/16/22 07:53: POC Glucose 112 H I & O for Labs for Last 24 Hours: Intake & Output 05/14/22 05/15/22 05/16/22 05/17/22 11:59 11:59 11:59 11:59 Intake Total 4335 / 4450 502 / 502 Output Total 875 / 950 550 / 550 Balance 3460 / 3500 -48 / -48 Weight 196 lb 4.8 oz 196 lb 4.8 oz Head: Present normocephalic Respiratory: Present rales (Bibasilar. But moving air well.) and normal respiratory effort; Absent respiratory distress Cardiac: Present Reg Rate and Rhythm GI: Present soft; Absent tenderness Extremities: Absent edema Skin: Present intact Neuro: Present alert, awake and oriented x 3 (Cogent) Assessment and Plan *Assessment and plan (1) Sepsis: Status: Acute Category: Medical Code(s): A41.9 - Sepsis, unspecified organism (2) Sepsis associated hypotension: Status: Acute Category: Medical Code(s): A41.9 - Sepsis, unspecified organism; I95.9 - Hypotension, unspecified (3) Intentional doxepin overdose: Status: Acute Category: Medical Code(s): T43.012A - Pois
--- NOTE | 2022-05-16 17:50 | PC.NURSE ---
Nursing bedside swallow eval completed, patient tolerated multiple consistencies well including thin liquids, regular diet ordered per MD
--- NOTE | 2022-05-16 18:08 | PC.NURSE ---
Patient resting comfortably in bed, extubated @1310, patient tolerated well, on 2LNC, Patient reports that he had not taken any kratom but had taken 10 75mg doxepin to be able to go to sleep, he reports he was not trying to harm himself but just felt aggravated and upset and wanted to sleep. He currently denies any SI. alert and oriented x4, perrla, ST on telemetry, lung sounds diminished in BL bases with scattered rhonchi and fine crackles bl, abd firm but nontender with hypoactive bowel sounds in all quads, FC patent and draining dark clear urine at bedside, UOP 75-100 per hour this shift, peripheral pulses 2+, no edema noted, denies any cp or soa, passed nurse bedside swallow, vss, bed in lowest position with call light in reach.
[2022-05-17] VITALS (11 sets, daily range): BP systolic 103–161; BP diastolic 51–99; PULSE 92–112; RESP 16–96; TEMP 36.9–37.2; O2SAT 92–98; BMI 28.1
--- NOTE | 2022-05-17 00:07 | PC.NURSE ---
Poison control called for update on pt.
--- NOTE | 2022-05-17 01:43 | PC.NURSE ---
Pt c/o headache with a rating of 6 on TABLE TOP TILE SETTER scale. Pt administered tylenol previously with little to no result. notified. New orders received a nd carried out.
--- NOTE | 2022-05-17 03:30 | PC.NURSE ---
Pt has c/o of headache this shift. Medicated with tylenol and ibuprofen. BP stable. Pt remains on 2L O2 NC. Lungs are diminished to bases. O2 sats remain in mid 90s. Has remained afebrile this shift. HR tachycardic but has improved. Pt is not having any difficulty with PO intake. No other concerns.
--- NOTE | 2022-05-17 15:20 | PC.NURSE ---
PT IS RESTING IN BED WITH FAMILY AT BEDSIDE. ALERT AND ORIENTED X4. PT STATED HE WAS SOA AFTER TAKING A SHOWER THIS SHIFT. 2 L NC APPLIED. O2 SATURATION 96-99% ON 2 L. ROOM AIR SATURATION 91-94%. LUNG SOUNDS DIMINISHED. ABDOMEN FIRM/NON TENDER WITH ACTIVE BOWEL SOUNDS. PT STATES HE HAS NOT HAD A BOWEL MOVEMENT IN A FEW DAYS. RUSSELL WAS REMOVED THIS MORNING. VOIDING W/O DIFFICULTY. WILL CONTINUE TO MONITOR.
--- NOTE | 2022-05-17 15:27 | XR_ITS ---
PROCEDURE INFORMATION: Exam: XR Chest Exam date and time: 05/17/2022 3:39 PM Age: 41 years old Clinical indication: Shortness of breath; Additional info: Bronchitis, SOA TECHNIQUE: Imaging protocol: Radiologic exam of the chest. Views: 2 views. COMPARISON: CR XR CHEST PORTABLE 05/16/2022 6:12 AM FINDINGS: Lungs: Patchy consolidative airspace opacities in the right lower lobe, concerning for pneumonia. Right middle lobe atelectasis with volume loss in the right lung. Pleural spaces: No pleural effusion. No pneumothorax. Heart/Mediastinum: Cardiomediastinal silouhette is within normal limits. Bones/joints: No acute osseous abnormality. IMPRESSION: 1. Patchy consolidative airspace opacities in the right lower lobe, concerning for pneumonia. 2. Right middle lobe atelectasis with volume loss in the right lung. Consider nonemergent follow-up chest CT to rule out endobronchial lesion.
--- NOTE | 2022-05-17 15:29 | P.PN_ITS ---
Subjective *Date: 05/17/22 *Time: 15:29 Interval history: Overall he is doing well now. He still has some shortness of breath, however. Chest x-ray is ordered today. He asks about his routine medications.,,These will be restarted today. I spent some time talking with the patient and his father about his outpatient care his history of addiction which seems to be less of a problem these days and his depression which seems to be not well controlled.He states that he has an appointment with psychology tomorrow morning at 8 here at [facility]. Perhaps we can keep that appointment and plan discharge afterwards. Medical Exam Vital signs and Labs for Last 24 Hours: Temp Pulse Resp BP Pulse Ox FiO2 98.6 F 105 H 20 146/89 H 98 50 05/17/22 12:00 05/17/22 14:00 05/17/22 14:00 05/17/22 14:00 05/17/22 14:00 05/16/22 13:00 I & O for Labs for Last 24 Hours: Intake & Output 05/15/22 05/16/22 05/17/22 05/18/22 11:59 11:59 11:59 11:59 Intake Total 4335 / 4450 2705 / 2705 240 / 240 Output Total 875 / 950 4100 / 4100 300 / 300 Balance 3460 / 3500 -1395 / -1395 -60 / -60 Weight 196 lb 4.8 oz 196 lb 8.674 oz Microbiology Reports for the Last 24 Hours: Microbiology 05/16/22 07:10 Sputum - Endotracheal Tube Aspirate Gram Stain - Final Head: Present normocephalic Neck: Present normal inspection Respiratory: Present rales (Present at the bases) Cardiac: Present Reg Rate and Rhythm and Regular Rate (Slightly tacky at 112) GI: Present soft; Absent tenderness or organomegaly Extremities: Present full ROM; Absent edema Skin: Present intact Neuro: Present alert, awake and oriented x 3 Additional Findings:: The discussion of his emotional and mental status was helpful. He seems to have a realistic perspective on his problems at least at this point. Assessment and Plan *Assessment and plan (1) Intentional doxepin overdose: Status: Acute Category: Medical Code(s): T43.012A - Poisoning by tricyclic antidepressants, intentional self-harm, initial encounter (2) Sepsis associated hypotension: Status: Acute Category: Medical Code(s): A41.9 - Sepsis, unspecified organism; I95.9 - Hypotension, unspecified (3) Hypokalemia: Status: Acute Category: Medical Code(s): E87.6 - Hypokalemia (4) Encephalopathy: Status: Resolved Category: Medical Code(s): G93.40 - Encephalopathy, unspecified (5) History of opioid abuse: Status: Acute Category: Medical Code(s): F11.11 - Opioid abuse, in remission (6) MDD (major depressive disorder), recurrent episode: Status: Acute Qualifiers: Major depression episode severity: moderate Qualified Code(s): F33.1 - Major depressive disorder, recurrent, moderate Category: Medical Code(s): F33.9 - Major depressive disorder, recurrent, unspecified (7) Generalized anxiety disorder with panic attacks: Status: Acute Category: Medical Code(s): F41.1 - Generalized anxiety disorder; F41.0 - Panic disorder [episodic paroxysmal anxiety] Plan We will see if he can keep his appointment with psychology tomorrow. Then discharge may be possible. He will require close early follow-up.
[2022-05-18] VITALS (8 sets, daily range): BP systolic 120–152; BP diastolic 68–87; PULSE 89–130; RESP 14–24; TEMP 36.6–37.1; O2SAT 92–100; BMI 28.1
--- NOTE | 2022-05-18 03:44 | PC.NURSE ---
Pt C/O headache at beginning of shift. Medicated per oct. Has rested well since. Has ambulated to BR. Tolerated well. VSS. Remains on RA. Crackles noted to bilateral bases. Pt states he has an appt previously scheduled with Ginny Montejo on 05/18. Call light within reach.
--- NOTE | 2022-05-18 04:38 | PC.NURSE ---
Poison control called for update on pt.
--- NOTE | 2022-05-18 08:17 | EXP.PN ---
Subjective *Date: 05/18/22 *Time: 09:24 Interval history: Shortness of breath with exertion. Has a productive cough. Right upper and lateral chest pain. Did sleep last night. Ate breakfast without difficulty. Bowels did move. He is voiding QS. He denies any suicidal ideations. Chest x-ray yesterday showed possible pneumonia on the right. He has been placed on Rocephin. Sputum results are pending. Has psych consult this morning. Exam Data for Last 24 hours Vital signs and Labs for Last 24 Hours: Temp Pulse Resp BP Pulse Ox FiO2 98.7 F 113 H 16 127/68 94 L 50 05/18/22 08:00 05/18/22 08:00 05/18/22 08:00 05/18/22 08:00 05/18/22 08:00 05/16/22 13:00 I & O for Last 24 hours: Intake & Output 05/15/22 05/16/22 05/17/22 05/18/22 11:59 11:59 11:59 11:59 Intake Total 4335 / 4335 2705 / 2705 480 / 480 Output Total 875 / 875 4100 / 4100 1400 / 1400 Balance 3460 / 3460 -1395 / -1395 -920 / -920 Weight 196 lb 4.8 oz 196 lb 8.674 oz 196 lb 8.674 oz Microbiology Reports for the Last 24 Hours: Microbiology 05/16/22 07:10 Sputum - Endotracheal Tube Aspirate Gram Stain - Final 05/16/22 07:10 Sputum - Endotracheal Tube Aspirate Sputum Culture - Preliminary 05/16/22 04:55 Blood Blood Culture - Preliminary NO GROWTH AFTER 48 HOURS 05/16/22 04:55 Blood Blood Culture - Preliminary NO GROWTH AFTER 48 HOURS Constitutional Constitutional: no acute distress Comments: Sitting up in the bed and appears comfortable *Routine Respiratory Exam Respiratory: Present crackles (Coarse crackles in the right base and mid lung. Some left basilar crackles) *Routine Cardiovascular Exam Cardiovascular: Present RRR and tachycardia (Sinus) *Routine Abdominal Exam Abdominal: Present soft and normoactive bowel sounds; Absent tenderness or distended *Routine Extremities Exam Extremities: Absent edema or calf tenderness *Routine Neurological Exam Neurological: Present alert and oriented X3 Routine Psychiatric Exam Psychiatric: Present normal thought process; Absent suicidal ideation or anxious Assessment and Plan *Assessment and plan (1) Intentional doxepin overdose: Status: Acute Category: Medical Code(s): T43.012A - Poisoning by tricyclic antidepressants, intentional self-harm, initial encounter (2) Pleurisy: Status: Acute Category: Medical Code(s): R09.1 - Pleurisy (3) Noncompliance with medication treatment due to abuse of medication: Problem details: Tori was consulted to floor due to medication abuse that resulted in overdose. Status: Acute Category: Medical Code(s): Z91.14 - Patient's other noncompliance with medication regimen (4) History of opioid abuse: Status: Acute Category: Medical Code(s): F11.11 - Opioid abuse, in remission (5) MDD (major depressive disorder), recurrent episode: Status: Acute Qualifiers: Major depression episode severity: moderate Qualified Code(s): F33.1 - Major depressive disorder, recurrent, moderate Category: Medical Code(s): F33.9 - Major depressive disorder, recurrent, unspecified (6) Generalized anxiety disorder with panic attacks: Status: Acute Category: Medical Code(s): F41.1 - Generalized anxiety disorder; F41.0 - Panic disorder [episodic paroxysmal anxiety] (7) Overdose: Status: Acute Category: Medical Code(s): T50.901A - Poisoning by unspecified drugs, medicaments and biological substances, accidental (unintentional), initial encounter (8) Malnutrition: Status: Acute Category: Medical Code(s): E46 - Unspecified protein-calorie malnutrition (9) Hypoalbuminemia: Status: Acute Category: Medical Code(s): E88.09 - Other disorders of plasma-protein metabolism, not elsewhere classified Plan Patient has been star
[2022-05-18 09:59] LABS: Chloride 102 mmol/L (98-107); Potassium 3.5 mmoL/L (3.5-5.1); Sodium 141 mmol/L (136-145)
[2022-05-18 10:01] LABS: Basophils # 0.1 K/mm3 (0-0.2); Basophils % 0.8 % (0.1-2.0); Eosinophils # 0.2 K/mm3 (0.0-0.4); Eosinophils % 2.2 % (0.1-12.0); Hematocrit 35.4 % (42.0-52.0); Hemoglobin 12.2 g/dL (14.1-18.0); Lymphocytes # 1.4 K/mm3 (0.7-4.5); Lymphocytes % 15.6 % (10-50); Mean Corpuscular HGB Conc 34.4 g/dL (31.8-35.4); Mean Corpuscular Volume 87.2 fl (80-94); Mean Platelet Volume 7.7 fl (7.4-10.4); Monocytes # 0.5 K/mm3 (0.1-1.0); Neutrophils # 6.7 K/mm3 (1.8-7.8); Neutrophils % 75.5 % (37.0-80.0); Platelet Count 266 K/mm3 (142-424); Red Blood Count 4.06 M/mm3 (4.60-6.20); Red Cell Distribution Width 13.5 % (11.5-17.5); White Blood Count 8.9 K/mm3 (4.8-10.8)
[2022-05-18 10:02] LABS: Alanine Aminotransferase 21 U/L (12-78); Albumin Level 3.6 g/dl (3.5-5.0); Albumin/Globulin Ratio 1.2 (1.1-1.8); Alkaline Phosphatase 97 U/L (38-126); Anion Gap 12.5 mEq/L (5-15); Aspartate Amino Transferase 25 U/L (17-59); Bilirubin,Total 0.5 mg/dl (0.2-1.3); Blood Urea Nitrogen 8 mg/dl (9-20); Calcium 8.3 mg/dl (8.4-10.2); Carbon Dioxide 30 mmol/L (22.0-30.0); Creatinine Clearance Estimated 139 mL/min (50-200); Estimated Glomerular Filt Rate 94 ml/min (>60); GFR (African American) 114 ML/MIN (>60); Globulin 2.9 g/dL (1.3-3.2); Glucose 95 mg/dl (74-100); Total Protein,Serum 6.5 g/dl (6.3-8.2)
--- NOTE | 2022-05-18 13:20 | SW/DCPLANNER ---
Addendum entered by Naima Etienne 05/18/22 13:26: [facility] [phone] Original Note: I spoke with patient and parents regarding plans once medically stable for discharge. Patient stated that [facility] has worked with him and he does have a bed with [facility] in [place] tomorrow morning. I did contact intake with [facility] and they have verified that patient does a bed for tomorrow morning. [facility] has requested that patient bring his discharge summary and med list with him. Patient will not require a COVID swab prior to discharge. Patient's parents were present during conversation and are agreeable with plan and will be transporting patient tomorrow morning. I have updated Behavioral Health and Dr Byrnes.
--- NOTE | 2022-05-18 17:31 | PC.NURSE ---
Patient has been pleasant and cooperative this shift, will be discharging in the morning to [facility], currently denies any SI/HI, reports he feels better about going to this facility than the last one he was at because it is smaller and he feels like he will get better help than before, remains on RA, HR reg, tachy at times, vss, c/o headache x1 this shift, treated with ibuprofen per emar with good results, lung sounds reveal fine crackles in bl bases, diminished in rll, no s/s of distress noted, has been up to chair for most of the day, ambulates independently in room, bed in lowest position with call light in reach.
[2022-05-19] VITALS: BP 137/73; PULSE 90; PULSE 98; RESP 20; TEMP 36.6; O2SAT 100
--- NOTE | 2022-05-19 01:33 | PC.NURSE ---
Assumed care of this patient at this time. Report received from Courtney Lorenzo RN
[2022-05-19 04:00] VITALS: BP 149/59; PULSE 86; RESP 18; TEMP 37; O2SAT 97; BMI 27.6
--- NOTE | 2022-05-19 05:10 | PC.NURSE ---
Pt has rested fairly well since this RN assumed care. Pt requested motrin for a headache, was medicated per with adequate relief. Pt independent. No needs or concerns voice, VSS, will continue to monitor. Pt did dislodge IV to Right forearm, IV d/c per this RN.
[2022-05-19 06:00] VITALS: PULSE 100
[2022-05-19 07:50] VITALS: PULSE 109; O2SAT 94
[2022-05-19 08:00] VITALS: BP 156/98; PULSE 109; RESP 16; TEMP 37.1; O2SAT 94
--- NOTE | 2022-05-19 08:34 | EXP.PN ---
Subjective *Date: 05/19/22 *Time: 08:34 Interval history: Patient did not sleep well during the night. Concerned about his transfer to psych facility. He is eating as usual. His bowels did move yesterday. He is voiding QS. His breathing is better with less cough. He has minimal right shoulder and posterior chest discomfort with deep inspiration and cough. He ambulates in the room. Exam Data for Last 24 hours Vital signs and Labs for Last 24 Hours: Temp Pulse Resp BP Pulse Ox FiO2 98.6 F 100 H 18 149/59 H 97 50 05/19/22 04:00 05/19/22 06:00 05/19/22 04:00 05/19/22 04:00 05/19/22 04:00 05/16/22 13:00 Laboratory Results - last 24 hr 05/15/22 15:30: Serum Osmolality 287 05/18/22 09:40: WBC 8.9 D, RBC 4.06 L, Hgb 12.2 L, Hct 35.4 L, MCV 87.2, MCH 30.0, MCHC 34.4, RDW 13.5, Plt Count 266, MPV 7.7, Neut % (Auto) 75.5, Lymph % (Auto) 15.6, Victoria % (Auto) 6.0, Eos % (Auto) 2.2, Baso % (Auto) 0.8, Neut # (Auto) 6.7, Lymph # (Auto) 1.4, Victoria # (Auto) 0.5, Eos # (Auto) 0.2, Baso # (Auto) 0.1 05/18/22 09:40: Sodium 141, Potassium 3.5, Chloride 102, Carbon Dioxide 30, Anion Gap 12.5, BUN 8 L D, Creatinine 0.90, Estimated Creat Clear 139, Estimated GFR 94, Est GFR ( Amer) 114, Glucose 95, Calcium 8.3 L, Total Bilirubin 0.5, AST 25 D, ALT 21 D, Alkaline Phosphatase 97, Total Protein 6.5, Albumin 3.6, Globulin 2.9, Albumin/Globulin Ratio 1.2 I & O for Last 24 hours: Intake & Output 05/16/22 05/17/22 05/18/22 05/19/22 11:59 11:59 11:59 11:59 Intake Total 4335 / 4335 2705 / 2705 840 / 840 772 / 772 Output Total 875 / 875 4100 / 4100 1400 / 1400 700 / 700 Balance 3460 / 3460 -1395 / -1395 -560 / -560 72 / 72 Weight 196 lb 4.8 oz 196 lb 8.674 oz 196 lb 8.674 oz 193 lb 5.526 oz Microbiology Reports for the Last 24 Hours: Microbiology 05/16/22 07:10 Sputum - Endotracheal Tube Aspirate Gram Stain - Final 05/16/22 07:10 Sputum - Endotracheal Tube Aspirate Sputum Culture - Final Normal Respiratory Ivanna 05/16/22 04:55 Blood Blood Culture - Preliminary NO GROWTH AFTER 48 HOURS 05/16/22 04:55 Blood Blood Culture - Preliminary NO GROWTH AFTER 48 HOURS Constitutional Constitutional: no acute distress *Routine Respiratory Exam Respiratory: Present crackles (Few crackles in the right base. Better air movement today.) *Routine Cardiovascular Exam Cardiovascular: Present tachycardia (Sinus tach on monitor from 100-110.) *Routine Abdominal Exam Abdominal: Present soft and normoactive bowel sounds; Absent tenderness or distended *Routine Extremities Exam Extremities: Absent edema or calf tenderness *Routine Neurological Exam Neurological: Present alert and oriented X3 Assessment and Plan *Assessment and plan (1) Overdose of antidepressant: Status: Acute Qualifiers: Encounter type: subsequent encounter Injury intent: intentional self-harm Qualified Code(s): T43.202D - Poisoning by unspecified antidepressants, intentional self-harm, subsequent encounter Category: Medical Code(s): T43.201A - Poisoning by unspecified antidepressants, accidental (unintentional), initial encounter (2) Intentional doxepin overdose: Status: Acute Category: Medical Code(s): T43.012A - Poisoning by tricyclic antidepressants, intentional self-harm, initial encounter (3) Malnutrition: Status: Acute Category: Medical Code(s): E46 - Unspecified protein-calorie malnutrition (4) Generalized anxiety disorder with panic attacks: Status: Acute Category: Medical Code(s): F41.1 - Generalized anxiety disorder; F41.0 - Panic disorder [episodic paroxysmal anxiety] (5) MDD (major depressive disorder), recurrent episode: Status: Acute Qualifiers: Major depression episode severity: moderate Qualified Code(s): F33.1 - Major depressive disorder, rec
--- NOTE | 2022-05-19 21:59 | EXP.DC.SUM ---
General Admission date:: 05/15/22 Discharge date: 05/19/22 HPI HPI HPI: This 41-year-old white male has a history of drug abuse and episodes of drug overdose.? He was brought to the emergency room tonight by his parents who found him unresponsive.? They administered Narcan with minimal response.He received additional Narcan in the emergency room.? He seemed to become more lethargic and it was the yard physician's judgment that he should be intubated.? He had started to froth at the mouth and there was concern for heart failure.The ER physician gave a Basom Coma Scale of 9.The patient's drug urine screen was negative but there is a history of abuse of kratom, and in the opinion of the ER physician and overdose with kratom was a distinct likelihood.The ER physician Dr. Guo has had experience previously with craton overdoses.? He also consulted with the [facility] and with poison control as he was making his judgments on treatment. After intubation the patient was admitted to the stepdown unit on the second floor of [facility].He is receiving propofol and fentanyl.At the present time he is resting quietly but there has been some concern by the nursing staff that he could have shown some seizure type of activity, though subtle. The patient has a history of depression and is treated for that.? He is maintained on Suboxone also for his history of narcotic abuse. Hospital Course Hospital Course Hospital Course: The patient was admitted for ventilator support overnight with the hope of being able to come off of the ventilator the next day. His blood pressures remained low until the morning of 05/16/2022. He developed a fever and, with tachycardia and hypotension, he triggered for sepsis. He was administered IV fluids accordingly and started on Rocephin. With administration of high-volume fluids, his blood pressure came up and he stabilized. His parents discussed some of his past history which included lung disease. The patient was able to be weaned off of propofol and became awake and alert enough for extubation. He was extubated on the evening of 05/16/2022. He reported that he overdosed on doxepin. He had taken ten 75 mg tablets. He was able to be transferred out of the ICU to stepdown status. By 05/17/2022, he was doing better. He still had some shortness of breath and a chest x-ray was ordered. He was restarted on his routine medications. Dr. Byrnes did spend some time talking with the patient and his father about his outpatient care and history of addiction, which seem to be less of a problem than his depression. He did have an appointment with psychology at [facility] on 05/18/2022. He was seen by Tori Montejo while inpatient and she explored arrangement for rehab on discharge. His chest x-ray showed a possible pneumonia on the right and he was continued on Rocephin. He was seen by Anne-Marie Sarmiento of behavioral health. He shared that his ex- was newly engaged and this put him in a deep depression and left him feeling hopeless.. He stated he knew his parents would find him and this is why he went through with the overdose once again. His dad was the one who found him unresponsive and called 911. His oldest daughter sent him a text message and wanted him to get help. He has had 3 documented overdoses in which he was admitted to the hospital and 2 occurred in the same month. The psychologist recommended he remain inpatient due to being a danger to himself and not mentally capable of making appropriate decisions. By 05/19/2022, he was stable to be transferred to a [facility] in [facility] for inpatient rehab. Exam Data for Last 24 hours Vital signs and Labs for Last 24 Hours: Temp Pulse Resp BP Pulse Ox FiO2 98.7 F 109 H 16 156/98 H 94 L 50 05/19/22 08:00 05/19/22 08:00 05/19/22 08:00 05/19/22 08:00 05/19/22 08:00 05/16/22 13:00 Laboratory Results - last 24 hr
[2022-05-20 22:10] LABS: Acetone <.010 g/dL (0.000-0.010); Butalbital <1 ug/mL (1-10); Chlordiazepoxide <0.1 ug/mL (0.1-0.9); Diazepam <0.1 ug/mL (0.1-0.9); Ethanol <.010 g/dL (0.000-0.010); Isopropanol <.010 g/dL (0.000-0.010); Pentobarbital <1 ug/mL (1-5)
== END 2022-05-19 10:27 | DRG 917 ==
LOC: ER 16:16 → 2ND 19:28
PROVIDERS: Admitting Provider Family Medicine; Emergency Provider Student in an Organized Health Care Education/Training Program; PCP Nurse Practitioner Family; Visit Provider Family Medicine
DX: T43.012A Poisoning by tricyclic antidepressants, intentional self-harm, initial encounter (principal); A41.9 Sepsis, unspecified organism; J18.9 Pneumonia, unspecified organism; E46 Unspecified protein-calorie malnutrition; Z87.891 Personal history of nicotine dependence; F11.11 Opioid abuse, in remission; F32.9 Major depressive disorder, single episode, unspecified; F41.0 Panic disorder [episodic paroxysmal anxiety]; R09.1 Pleurisy; Z68.27 Body mass index [BMI] 27.0-27.9, adult
CPT/HCPCS: 31500; 94002; 36415; 70450; 71045; 71046; 80048; 80053; 80305; 80306; 80329; 81001; 82550; 82803; 82962; 83605; 83735; 83930; 84484; 85007; 85025; 87040; 87070; 87205; 93005; 94003; 99291; 99292; C9803; J0330; J0574; J0696; J2704; U0003; U0005

== ENCOUNTER 2023-02-20 13:03 | Emergency (ER) | payer BC, SELFPAY ==
[2023-02-20 13:10] VITALS: BP 135/91; PULSE 78; RESP 21; TEMP 36.9; O2SAT 97; BMI 29.7
--- NOTE | 2023-02-20 13:30 | EXP.UTC ---
Discharge Plan Disposition Patient Disposition: Home, Self-Care Condition: Good Prescriptions Prescriptions: No Action atorvastatin 10 MG tablet 10 mg PO HS valsartan 80 MG tablet 80 mg PO DAILY ferrous sulfate 325 MG tablet 325 mg PO DAILY testosterone cypionate 200 MG/ML oil 1 ml IM .EVERY 2 WEEKS Rx Instructions: Inject 1 ml by IM every 2 weeks duloxetine 30 MG capsule,delayed release(DR/EC) 30 mg PO DAILY buspirone 10 MG tablet 10 mg PO BID bupropion HCl 300 MG tablet extended release 24 hr 300 mg PO DAILY buprenorphine-naloxone 8-2 mg film 2 film sublingual DAILY cholecalciferol (vitamin D3) 1,250 mcg (50,000 unit) capsule 50,000 unit PO WEEKLY levofloxacin 750 mg tablet 750 mg PO DAILY Qty: 5 0RF Referrals Follow up/Referrals: Seema Bustillo APRN [Primary Care Provider] - See instructions Activity Restrictions/Add. Instructions Additional Instructions/Restrictions: upper resp swab was sent to lab, call tomorrow for results. self isolate until test results are known to be negative No sign of a bacterial infection. Likely viral. Viruses can take 7-14 days to run their course. Nasal saline and bulb syringe or nose Priya to remove nasal drainage to help with nasal congestion. Hard to eat, drink, sleep with nasal congestion so important to keep this cleaned out. Monitor temp. Tylenol or Motrin as needed for pain or fever Encourage fluids, water, Gatorade, Powerade, Pedialyte if infant/toddler/child Warm salt water gargles Warm fluids Sore throat lozenges Sleep elevated Humidifier/vaporizer Follow-up immediately for new or worsening symptoms or no noticeable improvement over the next 48-72 hours. Clinical Impressions Clinical Impression: Upper respiratory infection Instructions Patient Instructions: DI for Viral Upper Respiratory Infection -- Adult Discharge ED Provider: Juanjose ([facility])Chantal [facility] HPI General Stated complaint: Bodyaches headache fever Mode of Arrival: Ambulatory Source of Information: Patient Limitations: No Limitations Time Seen by Provider: 02/20/23 13:31 Description of Symptoms (Recalled from Triage Doc. by RN): PATIENT C/O STIFFNESS TO NECK/SHOULDERS AND HEADACHE X 1 WEEK, AND BODY ACHES AND FEVER THAT STARTED YESTERDAY HEENT Symptoms (Recalled from RN notes): Yes Resp Symptoms (Recalled from RN notes): No Skin Symptoms (Recalled from RN notes): No MS Symptoms (Recalled from RN notes): No Functional Status (Recalled from RN notes): WNL History of Present Illness Provider Complaint: 42 yr old male presents for stiffness to neck/shoulders,casey,fever,body aches and generalized feelings of aching Related Data Home Medications Medication Instructions Recorded Confirmed bupropion HCl 300 mg 24 hr tablet, 300 mg PO DAILY Depression 02/07/22 05/18/22 extended release atorvastatin 10 mg tablet 10 mg PO HS High cholesterol 04/20/22 05/18/22 buspirone 10 mg tablet 10 mg PO BID Depression 04/20/22 05/18/22 duloxetine 30 mg capsule,delayed 30 mg PO DAILY Depression 04/20/22 05/18/22 release ferrous sulfate 325 mg (65 mg 325 mg PO DAILY Supplement 04/20/22 05/18/22 iron) tablet testosterone cypionate 200 mg/mL 1 ml IM .EVERY 2 WEEKS Supplement 04/20/22 05/18/22 intramuscular oil valsartan 80 mg tablet 80 mg PO DAILY High blood pressure 04/20/22 05/18/22 buprenorphine 8 mg-naloxone 2 mg 2 film sublingual DAILY Opioid 05/16/22 05/18/22 sublingual film Withdrawal cholecalciferol (vitamin D3) 1,250 50,000 unit PO WEEKLY Supplement 05/16/22 05/18/22 mcg (50,000 unit) capsule Previous Rx's Medication Instructions Recorded levofloxacin 750 mg tablet 750 mg PO DAILY #5 tabs 05/19/22 Allergies Allergy/AdvReac Type Severity Reaction Status Date / Time levetiracetam [LEVETIRACETAM] Allergy Unknown Verified 05/18/22 11:40 tramadol [TRAMADOL] Allergy Unknown Verified 05/18/22 11:40 Penicillins Allergy
[2023-02-20 13:37] LABS: UTC Influenza A Antigen Negative (Negative); UTC Influenza B Antigen Negative (Negative); UTC Strep Screen (Rapid) Negative (Negative)
[2023-02-20 13:49] VITALS: BP 135/91; PULSE 78; RESP 21; TEMP 36.9; O2SAT 97
[2023-02-20 13:51] LABS: Adenovirus,PCR Not Detected (NotDetected); Bordetella Pertussis Not Detected (NotDetected); Chlamydophila Pneumoniae, PCR Not Detected (NotDetected); Coronavirus 19, PCR Not Detected (NotDetected); Coronavirus 229E Not Detected (NotDetected); Coronavirus NL63 Not Detected (NotDetected); Coronavirus OC43 Not Detected (NotDetected); Coronovirus HKU1,PCR Not Detected (NotDetected); Human Metapneumovirus Not Detected (NotDetected); Influenza A, PCR Not Detected (NotDetected); Influenza AH1, 2009 Not Detected (NotDetected); Influenza AH1, PCR Not Detected (NotDetected); Influenza AH3,PCR Not Detected (NotDetected); Influenza B, PCR Not Detected (NotDetected); Mycoplasma Pneumoniae, PCR Not Detected (NotDetected); Parainfluenza 1, PCR Not Detected (NotDetected); Parainfluenza 2, PCR Not Detected (NotDetected); Parainfluenza 3, PCR Not Detected (NotDetected); Parainfluenza 4, PCR Not Detected (NotDetected); Respiratory Syncytial Virus Not Detected (NotDetected); Rhinovirus/Enterovirus Not Detected (NotDetected)
== END 2023-02-20 13:48 | disposition home or self-care (01) ==
PROVIDERS: Emergency Provider Nurse Practitioner Family; PCP Nurse Practitioner Family
DX: J06.9 Acute upper respiratory infection, unspecified (principal); R50.9 Fever, unspecified; R51.9 Headache, unspecified; M79.18 Myalgia, other site; I10 Essential (primary) hypertension; E78.5 Hyperlipidemia, unspecified; F41.9 Anxiety disorder, unspecified; F32.A Depression, unspecified; Z87.891 Personal history of nicotine dependence
CPT/HCPCS: 87581; 87632; 87635; 87798; 87804; 87880; 99212; 99213; C9803; G0463; U0003; U0005

== ENCOUNTER 2023-02-25 09:12 | Emergency (ER) | payer BC, SELFPAY ==
--- NOTE | 2023-02-25 09:06 | ECG_ITS ---
APPROVED REPORT Exam: Resting ECG HR:76 bpm ECG Measurements Heart Rate 76 AXES CA 173 P 2 QRSd 96 QRS 29 QT 344 T 42 QTc 374 Conclusion SINUS RHYTHM NORMAL ECG UNCONFIRMED REPORT Electronically signed by : Naveed Barrow MD 02/25/2023 22:20:43
[2023-02-25 09:14] VITALS: BP 144/90; PULSE 74; RESP 20; TEMP 37.1; O2SAT 100; BMI 28.1
[2023-02-25 09:31] VITALS: BP 138/93; PULSE 81; O2SAT 98
--- NOTE | 2023-02-25 09:38 | PC.NURSE ---
Rounded on patient; no needs at this time. Family at BS, call hidalgo within reach
--- NOTE | 2023-02-25 09:39 | XR_ITS ---
FINAL REPORT CLINICAL HISTORY: Shortness of breath COMPARISON: 05/17/2022 FINDINGS: A single portable view of the chest was obtained. The heart size and pulmonary vascularity are within normal limits. There is elevation of the right hemidiaphragm. No acute pulmonary abnormality is identified. The bony thorax is intact. IMPRESSION: No active cardiopulmonary disease. Reviewed, Interpreted and Dictated by Keith Metz III, MD Transcribed by Katelin Corrales Authenticated and [facility]
--- NOTE | 2023-02-25 09:44 | PC.NURSE ---
visitor at the [facility]. jessica initiated at this time
--- NOTE | 2023-02-25 09:45 | HMH.EDGENADL ---
Discharge Plan Disposition Patient Disposition: Home, Self-Care Prescriptions Prescriptions: New albuterol sulfate 90 mcg/actuation HFA aerosol inhaler 4 inh inhalation Q4H PRN (Reason: shortness of breath or wheezing) Qty: 8.5 0RF Rx Instructions: 4 puffs every 4 hours for 48 hours then as needed for shortness of breath or wheezing following No Action atorvastatin 10 MG tablet 10 mg PO HS valsartan 80 MG tablet 80 mg PO DAILY duloxetine 30 MG capsule,delayed release(DR/EC) 30 mg PO DAILY buspirone 10 MG tablet 10 mg PO BID bupropion HCl 300 MG tablet extended release 24 hr 300 mg PO DAILY buprenorphine-naloxone 8-2 mg film 2 film sublingual DAILY Activity Restrictions/Add. Instructions Additional Instructions/Restrictions: Please follow-up with your primary care doctor to ensure resolution of your symptoms return to the emergency part with any worsening chest discomfort specifically in the setting of exertion. Clinical Impressions Clinical Impression: Chest tightness, RAD (reactive airway disease), Encounter for smoking cessation counseling Discharge ED Provider: Jewel Sullivan General Adult HPI General Chief complaint: Chest Pain Stated complaint: chest pain Time Seen by Provider: 02/25/23 09:28 Mode of Arrival: Ambulatory Source of Information: Patient Limitations: No Limitations Description of Symptoms (Recalled from ER Triage Doc. by RN): pt to ed c/o mid sternal chest pain that started this morning while pt was at rest. pt denies nausea associated with the pain. pt denies any radiation with the pain. pt denies any cardiac hx. pt denies taking any ASA today. History of Present Illness HPI narrative: Patient is a 42-year-old male presenting today with multiple complaints. States over the last week he has been having generalized malaise and feeling down and then developed chest pain this morning. Chest pain is substernal in nature described as chest pressure is worse with inspiration but there is no significant pain associated with it. He denies any wheezing but does state that he is a smoker and recently started smoking just 6 months ago. He has had no fevers cough chills. He has had no exertional symptoms, nonradiating not associate with dyspnea or nausea. Related Data Home Medications Medication Instructions Recorded Confirmed bupropion HCl 300 mg 24 hr tablet, 300 mg PO DAILY Depression 02/07/22 02/25/23 extended release atorvastatin 10 mg tablet 10 mg PO HS High cholesterol 04/20/22 02/25/23 buspirone 10 mg tablet 10 mg PO BID Depression 04/20/22 02/25/23 duloxetine 30 mg capsule,delayed 30 mg PO DAILY Depression 04/20/22 02/25/23 release valsartan 80 mg tablet 80 mg PO DAILY High blood pressure 04/20/22 02/25/23 buprenorphine 8 mg-naloxone 2 mg 2 film sublingual DAILY Opioid 05/16/22 02/25/23 sublingual film Withdrawal Previous Rx's Medication Instructions Recorded albuterol sulfate 90 mcg/actuation 4 inh inhalation Q4H PRN shortness 02/25/23 aerosol inhaler of breath or wheezing #8.5 grams Allergies Allergy/AdvReac Type Severity Reaction Status Date / Time levetiracetam [LEVETIRACETAM] Allergy Unknown Verified 05/18/22 11:40 tramadol [TRAMADOL] Allergy Unknown Verified 05/18/22 11:40 Penicillins Allergy Verified 02/20/23 13:25 [facility] Disclaimer: The information contained in this section may have been updated after the patient was seen, as this information can be updated by other users. Medical History , REGISTERED NURSE CARDIOVASCULAR ICU) Anemia Anxiety Depression Encounter for monitoring Suboxone maintenance therapy Gastritis History of anemia History of opioid abuse Hyperlipidemia Hypertension Hypoalbuminemia Hypokalemia Ingestion of unknown medication Noncompliance with medication treatment due to abuse of medication Pleurisy Strep sore throat Viral syndrome Social History (Revie
[2023-02-25 10:00] VITALS: BP 125/95; PULSE 70; O2SAT 99
[2023-02-25 10:00] LABS: Alanine Aminotransferase 30 U/L (12-78); Albumin Level 4.9 g/dl (3.5-5.0); Albumin/Globulin Ratio 1.3 (1.1-1.8); Alkaline Phosphatase 91 U/L (38-126); Anion Gap 15.8 mEq/L (5-15); Aspartate Amino Transferase 30 U/L (17-59); Basophils # 0.1 K/mm3 (0-0.2); Basophils % 0.7 % (0.1-2.0); Bilirubin,Total 0.9 mg/dl (0.2-1.3); Blood Urea Nitrogen 21 mg/dl (9-20); Calcium 9.5 mg/dl (8.4-10.2); Carbon Dioxide 32 mmol/L (22.0-30.0); Chloride 98 mmol/L (98-107); Creatinine Clearance Estimated 97 mL/min (50-200); Eosinophils # 0.1 K/mm3 (0.0-0.4); Eosinophils % 1.5 % (0.1-12.0); Estimated Glomerular Filt Rate 67 ml/min (>60); GFR (African American) 81 ML/MIN (>60); Globulin 3.7 g/dL (1.3-3.2); Glucose 102 mg/dl (74-100); Hemoglobin 16.7 g/dL (14.1-18.0); Lymphocytes # 3.2 K/mm3 (0.7-4.5); Lymphocytes % 40.3 % (10-50); Mean Corpuscular HGB Conc 32.7 g/dL (31.8-35.4); Mean Corpuscular Volume 85.6 fl (80-94); Mean Platelet Volume 7.3 fl (7.4-10.4); Monocytes # 0.5 K/mm3 (0.1-1.0); Monocytes % 6.4 % (1.7-9.3); Neutrophils % 51.1 % (37.0-80.0); Platelet Count 272 K/mm3 (142-424); Potassium 3.8 mmoL/L (3.5-5.1); Red Blood Count 5.96 M/mm3 (4.60-6.20); Red Cell Distribution Width 13.1 % (11.5-17.5); Sodium 142 mmol/L (136-145); Total Protein,Serum 8.6 g/dl (6.3-8.2); White Blood Count 7.9 K/mm3 (4.8-10.8)
[2023-02-25 10:12] LABS: Troponin I < 0.01 ng/ml (0.00-0.034)
[2023-02-25 10:30] VITALS: BP 143/93; PULSE 76; O2SAT 98
[2023-02-25 11:00] VITALS: BP 131/84; PULSE 63; O2SAT 97
[2023-02-25 11:24] VITALS: BP 131/84; PULSE 77; RESP 20; TEMP 37.1; O2SAT 99
== END 2023-02-25 11:26 | disposition home or self-care (01) ==
PROVIDERS: Emergency Provider Student in an Organized Health Care Education/Training Program; PCP Nurse Practitioner Family
DX: R07.89 Other chest pain (principal); J45.909 Unspecified asthma, uncomplicated; D64.9 Anemia, unspecified; F41.9 Anxiety disorder, unspecified; F32.A Depression, unspecified; E78.5 Hyperlipidemia, unspecified; I10 Essential (primary) hypertension; F17.200 Nicotine dependence, unspecified, uncomplicated
CPT/HCPCS: 71045; 80053; 84484; 85025; 93005; 96361; 96374; 99285

== ENCOUNTER 2023-05-02 14:13 | Emergency (ER) | payer BC, SELFPAY ==
[2023-05-02 14:14] VITALS: BP 146/105; PULSE 82; RESP 17; TEMP 36.7; O2SAT 98; BMI 29.0
[2023-05-02 14:19] VITALS: BP 146/105; PULSE 82; O2SAT 100
--- NOTE | 2023-05-02 14:27 | PC.NURSE ---
pt ambulated to rest with stand by assist
--- NOTE | 2023-05-02 15:02 | XR_ITS ---
PROCEDURE INFORMATION: Exam: XR Chest Exam date and time: 05/02/2023 3:12 PM Age: 42 years old Clinical indication: Pain; Chest pressure; Additional info: Cp TECHNIQUE: Imaging protocol: Radiologic exam of the chest. Views: 1 view. COMPARISON: CR XR CHEST PORTABLE 02/25/2023 9:54 AM FINDINGS: Lungs: Unremarkable. No consolidation. Pleural spaces: Unremarkable. No pleural effusion. No pneumothorax. Heart/Mediastinum: Unremarkable. No cardiomegaly. Bones/joints: Unremarkable. IMPRESSION: No acute findings.
--- NOTE | 2023-05-02 15:04 | ECG_ITS ---
APPROVED REPORT Exam: Resting ECG HR:81 bpm ECG Measurements Heart Rate 81 AXES NC 162 P 2 QRSd 93 QRS 31 QT 333 T 57 QTc 370 Conclusion SINUS RHYTHM NORMAL ECG UNCONFIRMED REPORT Electronically signed by : Naveed Barrow MD 05/03/2023 15:51:05
--- NOTE | 2023-05-02 15:47 | PC.NURSE ---
Rounded on patient; nothing needed at this time. Call hidalgo within reach
--- NOTE | 2023-05-02 15:48 | PC.NURSE ---
rounded on pt no needs dad at bs
[2023-05-02 15:50] VITALS: BP 150/84; PULSE 64; RESP 16; O2SAT 98
[2023-05-02 15:52] LABS: Basophils # 0.1 K/mm3 (0-0.2); Basophils % 0.9 % (0.1-2.0); Eosinophils # 0.1 K/mm3 (0.0-0.4); Eosinophils % 1.9 % (0.1-12.0); Hematocrit 46.6 % (42.0-52.0); Hemoglobin 15.4 g/dL (14.1-18.0); Lymphocytes # 1.5 K/mm3 (0.7-4.5); Lymphocytes % 26.7 % (10-50); Mean Corpuscular HGB Conc 33.1 g/dL (31.8-35.4); Mean Corpuscular Hemoglobin 29.2 pg (27.0-31.2); Mean Corpuscular Volume 88.1 fl (80-94); Mean Platelet Volume 7.4 fl (7.4-10.4); Monocytes # 0.4 K/mm3 (0.1-1.0); Monocytes % 6.5 % (1.7-9.3); Neutrophils # 3.6 K/mm3 (1.8-7.8); Platelet Count 285 K/mm3 (142-424); Red Blood Count 5.29 M/mm3 (4.60-6.20); Red Cell Distribution Width 13.6 % (11.5-17.5); White Blood Count 5.6 K/mm3 (4.8-10.8)
[2023-05-02 15:54] LABS: Chloride 102 mmol/L (98-107)
[2023-05-02 15:55] LABS: Potassium 4.5 mmoL/L (3.5-5.1); Sodium 145 mmol/L (136-145)
[2023-05-02 15:57] LABS: Alanine Aminotransferase 73 U/L (12-78); Alkaline Phosphatase 77 U/L (38-126); Anion Gap 14.5 mEq/L (5-15); Aspartate Amino Transferase 95 U/L (17-59); Bilirubin,Total 0.9 mg/dl (0.2-1.3); Blood Urea Nitrogen 17 mg/dl (9-20); Carbon Dioxide 33 mmol/L (22.0-30.0); Creatinine Clearance Estimated 117 mL/min (50-200); Estimated Glomerular Filt Rate 83 ml/min (>60); GFR (African American) 100 ML/MIN (>60)
[2023-05-02 15:58] LABS: Calcium 9.9 mg/dl (8.4-10.2); Glucose 102 mg/dl (74-100)
[2023-05-02 16:00] VITALS: BP 142/96; PULSE 49; RESP 16; O2SAT 100
--- NOTE | 2023-05-02 16:10 | HMH.EDGENADL ---
Discharge Plan Disposition Chief Complaint: Weakness Prescriptions Prescriptions: No Action atorvastatin 10 MG tablet 10 mg PO HS valsartan 80 MG tablet 80 mg PO DAILY duloxetine 30 MG capsule,delayed release(DR/EC) 30 mg PO DAILY buspirone 10 MG tablet 10 mg PO BID bupropion HCl 300 MG tablet extended release 24 hr 300 mg PO DAILY buprenorphine-naloxone 8-2 mg film 2 film sublingual DAILY albuterol sulfate 90 mcg/actuation HFA aerosol inhaler 4 inh inhalation Q4H PRN (Reason: shortness of breath or wheezing) Qty: 8.5 0RF Rx Instructions: 4 puffs every 4 hours for 48 hours then as needed for shortness of breath or wheezing following Referrals Follow up/Referrals: Seema Bustillo APRN [Primary Care Provider] - See instructions Discharge ED Provider: Zeke Patrick General Adult HPI General Chief complaint: Weakness Stated complaint: possibly dehydrated Time Seen by Provider: 05/02/23 15:02 Mode of Arrival: Ambulatory Source of Information: Patient Limitations: No Limitations Description of Symptoms (Recalled from ER Triage Doc. by RN): Presents to ED with c/o generalized weakness. Patient reports testing positive for COVID on 04/23. 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 History of Present Illness HPI narrative: This 42-year-old male presents to the emergency department with concerns of generalized weakness. 9 days ago he was diagnosed with COVID. He states he has not taken any medications today for fevers, chills, and has had minimal oral intake. Patient has a history of anxiety and feels very anxious. He states he has chills. He denies new cough, no new fevers, no vomiting, minimal diarrhea, not bloody or black. Patient also states that while in the emergency department he has developed mild chest pain. No other new symptoms. Related Data Home Medications Medication Instructions Recorded Confirmed bupropion HCl 300 mg 24 hr tablet, 300 mg PO DAILY Depression 02/07/22 02/25/23 extended release atorvastatin 10 mg tablet 10 mg PO HS High cholesterol 04/20/22 02/25/23 buspirone 10 mg tablet 10 mg PO BID Depression 04/20/22 02/25/23 duloxetine 30 mg capsule,delayed 30 mg PO DAILY Depression 04/20/22 02/25/23 release valsartan 80 mg tablet 80 mg PO DAILY High blood pressure 04/20/22 02/25/23 buprenorphine 8 mg-naloxone 2 mg 2 film sublingual DAILY Opioid 05/16/22 02/25/23 sublingual film Withdrawal Previous Rx's Medication Instructions Recorded albuterol sulfate 90 mcg/actuation 4 inh inhalation Q4H PRN shortness 02/25/23 aerosol inhaler of breath or wheezing #8.5 grams Allergies Allergy/AdvReac Type Severity Reaction Status Date / Time levetiracetam [LEVETIRACETAM] Allergy Unknown Verified 05/18/22 11:40 tramadol [TRAMADOL] Allergy Unknown Verified 05/18/22 11:40 Penicillins Allergy Verified 02/20/23 13:25 [facility] Disclaimer: The information contained in this section may have been updated after the patient was seen, as this information can be updated by other users. 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
[2023-05-02 16:15] LABS: Troponin I < 0.01 ng/ml (0.00-0.034)
[2023-05-02 17:31] VITALS: BP 152/97; PULSE 72; RESP 16; TEMP 36.7; O2SAT 97
--- NOTE | 2023-05-03 11:12 | HMH.EDGENADL ---
Discharge Plan Disposition Patient Disposition: Home, Self-Care Condition: Good Prescriptions Prescriptions: No Action atorvastatin 10 MG tablet 10 mg PO HS valsartan 80 MG tablet 80 mg PO DAILY duloxetine 30 MG capsule,delayed release(DR/EC) 30 mg PO DAILY buspirone 10 MG tablet 10 mg PO BID bupropion HCl 300 MG tablet extended release 24 hr 300 mg PO DAILY buprenorphine-naloxone 8-2 mg film 2 film sublingual DAILY albuterol sulfate 90 mcg/actuation HFA aerosol inhaler 4 inh inhalation Q4H PRN (Reason: shortness of breath or wheezing) Qty: 8.5 0RF Rx Instructions: 4 puffs every 4 hours for 48 hours then as needed for shortness of breath or wheezing following Referrals Follow up/Referrals: Seema Bustillo APRN [Primary Care Provider] - See instructions Activity Restrictions/Add. Instructions Additional Instructions/Restrictions: No evidence of any acute cardiopulmonary emergency please take Tylenol and ibuprofen as needed for your symptoms and return to the emergency department as needed. Clinical Impressions Clinical Impression: Atypical chest pain, COVID-19 Instructions Patient Instructions: DI for Atypical Chest Pain Discharge ED Provider: Zeke Patrick General Adult HPI General Chief complaint: Weakness Stated complaint: possibly dehydrated Time Seen by Provider: 05/02/23 15:02 Mode of Arrival: Ambulatory Source of Information: Patient Limitations: No Limitations Description of Symptoms (Recalled from ER Triage Doc. by RN): Presents to ED with c/o generalized weakness. Patient reports testing positive for COVID on 04/23. 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 History of Present Illness HPI narrative: This 42-year-old male with a history of anxiety presents to the emergency department for the second time in 24 hours with chest pain, anxiety, diaphoresis. Patient states he took all of his prescribed medications prior to arrival. He also states he took Tylenol and ibuprofen. He denies any illicit substance use aside from vaping nicotine. Patient states he has not had any changes in his medications recently. Patient has presented for the same multiple times in the past few months with benign work-ups. Related Data Home Medications Medication Instructions Recorded Confirmed bupropion HCl 300 mg 24 hr tablet, 300 mg PO DAILY Depression 02/07/22 02/25/23 extended release atorvastatin 10 mg tablet 10 mg PO HS High cholesterol 04/20/22 02/25/23 buspirone 10 mg tablet 10 mg PO BID Depression 04/20/22 02/25/23 duloxetine 30 mg capsule,delayed 30 mg PO DAILY Depression 04/20/22 02/25/23 release valsartan 80 mg tablet 80 mg PO DAILY High blood pressure 04/20/22 02/25/23 buprenorphine 8 mg-naloxone 2 mg 2 film sublingual DAILY Opioid 05/16/22 02/25/23 sublingual film Withdrawal Previous Rx's Medication Instructions Recorded albuterol sulfate 90 mcg/actuation 4 inh inhalation Q4H PRN shortness 02/25/23 aerosol inhaler of breath or wheezing #8.5 grams Allergies Allergy/AdvReac Type Severity Reaction Status Date / Time levetiracetam [LEVETIRACETAM] Allergy Unknown Verified 05/18/22 11:40 tramadol [TRAMADOL] Allergy Unknown Verified 05/18/22 11:40 Penicillins Allergy Verified 02/20/23 13:25 [facility] Disclaimer: The information contained in this section may have been updated after the patient was seen, as this information can be updated by other users. Medical History , INVESTIGATION MANAGER) Anemia Anxiety Depression Encounter for monitoring Suboxone maintenance therapy Gastritis History of anemia History of opioid abuse Hyperlipidemia Hypertension Hypoalbuminemia Hypokalemia Ingestion of unknown medication Noncompliance with medication treatment due to abuse of medication Pleurisy Strep sore throat Viral syndrome Social History , INVESTIGATION MANAGER)
[2023-05-03 11:18] LABS: Microscopic, Urine URINE MICROSCOPIC (MICROSCOPIC)
[2023-05-03 11:28] LABS: Alanine Aminotransferase 79 U/L (12-78); Albumin/Globulin Ratio 1.1 (1.1-1.8); Alkaline Phosphatase 82 U/L (38-126); Anion Gap 11.5 mEq/L (5-15); Aspartate Amino Transferase 55 U/L (17-59); Bilirubin,Total 0.7 mg/dl (0.2-1.3); Blood Urea Nitrogen 15 mg/dl (9-20); Calcium 9.1 mg/dl (8.4-10.2); Carbon Dioxide 32 mmol/L (22.0-30.0); Chloride 101 mmol/L (98-107); Creatinine Clearance Estimated 117 mL/min (50-200); Estimated Glomerular Filt Rate 83 ml/min (>60); GFR (African American) 100 ML/MIN (>60); Globulin 3.8 g/dL (1.3-3.2); Glucose 114 mg/dl (74-100); Potassium 3.5 mmoL/L (3.5-5.1); Sodium 141 mmol/L (136-145); Total Protein,Serum 7.8 g/dl (6.3-8.2)
[2023-05-03 11:32] LABS: Basophils % 0.6 % (0.1-2.0); Eosinophils # 0.1 K/mm3 (0.0-0.4); Eosinophils % 1.7 % (0.1-12.0); Hematocrit 45.2 % (42.0-52.0); Lymphocytes # 2.3 K/mm3 (0.7-4.5); Lymphocytes % 34.5 % (10-50); Mean Corpuscular HGB Conc 33.2 g/dL (31.8-35.4); Mean Corpuscular Hemoglobin 28.5 pg (27.0-31.2); Mean Corpuscular Volume 85.9 fl (80-94); Mean Platelet Volume 7.1 fl (7.4-10.4); Monocytes # 0.5 K/mm3 (0.1-1.0); Monocytes % 6.9 % (1.7-9.3); Neutrophils # 3.7 K/mm3 (1.8-7.8); Neutrophils % 56.2 % (37.0-80.0); Platelet Count 313 K/mm3 (142-424); Red Blood Count 5.26 M/mm3 (4.60-6.20); Red Cell Distribution Width 13.3 % (11.5-17.5); White Blood Count 6.6 K/mm3 (4.8-10.8)
[2023-05-03 11:33] LABS: D-Dimer 0.74 ug/mL (0.0-0.5)
[2023-05-03 11:39] LABS: Ethyl Alcohol < 10 mg/dl (0-10)
[2023-05-03 11:55] LABS: Appearance,Urine Clear (Clear); Color,Urine Yellow (Yellow); Protein,Urine Negative (Negative); Specific Gravity, Urine 1.015 (1.005-1.030)
[2023-05-03 11:56] LABS: Bacteria,Urine Trace /lpf; Bilirubin,Urine Negative (Negative); Blood, Urine Negative (Negative); Glucose,Urine (UA) Negative (Negative); Ketones,Urine Negative (Negative); Leukocyte Esterase,Urine Negative (Negative); Nitrate,Urine Negative (Negative); Squamous Epithelial Cell,Urine Occasional #/hpf (0-5)
[2023-05-03 11:57] LABS: Benzodiazepines Screen,Urine Negative ng/ml (<200)
[2023-05-03 11:58] LABS: Amphetamine/Metha Screen,Urine Negative ng/ml (<1000); Barbiturates Screen,Urine Negative ng/ml (<200)
[2023-05-03 11:59] LABS: Cannabinoid Screen,Urine Negative ng/ml (<50); Methadone Screen,Urine Negative ng/ml (<300)
[2023-05-03 12:00] LABS: Cocaine Screen,Urine Negative ng/ml (<300)
[2023-05-03 12:01] LABS: Opiate Screen,Urine Negative ng/ml (<300); Phencyclidine Screen,Urine Negative ng/ml (<25)
[2023-05-03 12:19] LABS: Troponin I < 0.01 ng/ml (0.00-0.034)
== END 2023-05-02 17:33 | disposition home or self-care (01) ==
PROVIDERS: Emergency Provider Emergency Medicine; PCP Nurse Practitioner Family
DX: U07.1 COVID-19 (principal); R53.1 Weakness; F41.9 Anxiety disorder, unspecified; F32.A Depression, unspecified; I10 Essential (primary) hypertension; E78.5 Hyperlipidemia, unspecified; F17.200 Nicotine dependence, unspecified, uncomplicated
CPT/HCPCS: 71045; 80053; 80305; 81001; 84484; 85025; 85378; 93005; 99285

== ENCOUNTER 2023-05-03 11:03 | Emergency (ER) | payer BC, SELFPAY ==
[2023-05-03] VITALS (8 sets, daily range): BP systolic 134–161; BP diastolic 91–107; PULSE 62–85; RESP 16–24; TEMP 36.6–36.7; O2SAT 96–98; BMI 28.1
--- NOTE | 2023-05-03 11:03 | ECG_ITS ---
APPROVED REPORT Exam: Resting ECG HR:88 bpm ECG Measurements Heart Rate 88 AXES WI 163 P 27 QRSd 88 QRS 43 QT 345 T 59 QTc 391 Conclusion SINUS RHYTHM NORMAL ECG UNCONFIRMED REPORT Electronically signed by : Naveed Barrow MD 05/03/2023 15:49:13
--- NOTE | 2023-05-03 11:08 | XR_ITS ---
PROCEDURE INFORMATION: Exam: XR Chest Exam date and time: 05/03/2023 11:38 AM Age: 42 years old Clinical indication: Other: Chest pain; Additional info: Cp TECHNIQUE: Imaging protocol: Radiologic exam of the chest. Views: 1 view. COMPARISON: CR XR CHEST PORTABLE 05/02/2023 3:12 PM FINDINGS: Lungs: Unremarkable. No consolidation. No significant interval changes. Pleural spaces: Mild elevation right hemidiaphragm unchanged. No pleural effusion. No pneumothorax. Heart/Mediastinum: Unremarkable. No cardiomegaly. Bones/joints: Unremarkable for age. IMPRESSION: Stable chest. No active disease.
--- NOTE | 2023-05-03 11:12 | PC.NURSE ---
pr ambulated to the br
--- NOTE | 2023-05-03 11:22 | HMH.EDGENADL ---
Discharge Plan Disposition Patient Disposition: Home, Self-Care Condition: Fair Prescriptions Prescriptions: No Action atorvastatin 10 MG tablet 10 mg PO HS valsartan 80 MG tablet 80 mg PO DAILY duloxetine 30 MG capsule,delayed release(DR/EC) 30 mg PO DAILY buspirone 10 MG tablet 10 mg PO BID bupropion HCl 300 MG tablet extended release 24 hr 300 mg PO DAILY buprenorphine-naloxone 8-2 mg film 2 film sublingual DAILY albuterol sulfate 90 mcg/actuation HFA aerosol inhaler 4 inh inhalation Q4H PRN (Reason: shortness of breath or wheezing) Qty: 8.5 0RF Rx Instructions: 4 puffs every 4 hours for 48 hours then as needed for shortness of breath or wheezing following Referrals Follow up/Referrals: Sandoval Rosen MD [Staff Physician] - See instructions (Intermittent chest pains, believed to be related to anxiety) Provider,Referral, [Referring] - See instructions Activity Restrictions/Add. Instructions Additional Instructions/Restrictions: Call your primary care provider first thing in the morning for an appointment. Also get recommendations for a psychiatrist to be scheduled for counseling and further management of anxiety. I referred you to cardiology for further evaluation of intermittent chest pain though your work-up here has repeatedly been benign. Continue taking home medications as prescribed. Return to the emergency department with new or worsening symptoms. Clinical Impressions Clinical Impression: Chest pain Qualifiers: Chest pain type: unspecified Qualified Code(s): R07.9 - Chest pain, unspecified Discharge ED Provider: Zeke Patrick Adult HPI General Chief complaint: Chest Pain Stated complaint: chest pain Time Seen by Provider: 05/03/23 11:20 Mode of Arrival: Ambulatory Source of Information: Patient Limitations: No Limitations Description of Symptoms (Recalled from ER Triage Doc. by RN): 42 yo M presents to ED with c/o chest pressure. symptoms began this am after taking his morning medication. pt is diaphoretic and fidgety. pt reports that he felt better after leaving ED yesterday but symptoms returned this am. History of Present Illness HPI narrative: This 42-year-old male with a history of anxiety presents to the emergency department for the second time in 24 hours with chest pain, anxiety, diaphoresis. Patient states he took all of his prescribed medications prior to arrival. He also states he took Tylenol and ibuprofen. He denies any illicit substance use aside from vaping nicotine. Patient states he has not had any changes in his medications recently. Patient has presented for the same multiple times in the past few months with benign work-ups. Related Data Home Medications Medication Instructions Recorded Confirmed bupropion HCl 300 mg 24 hr tablet, 300 mg PO DAILY Depression 02/07/22 02/25/23 extended release atorvastatin 10 mg tablet 10 mg PO HS High cholesterol 04/20/22 02/25/23 buspirone 10 mg tablet 10 mg PO BID Depression 04/20/22 02/25/23 duloxetine 30 mg capsule,delayed 30 mg PO DAILY Depression 04/20/22 02/25/23 release valsartan 80 mg tablet 80 mg PO DAILY High blood pressure 04/20/22 02/25/23 buprenorphine 8 mg-naloxone 2 mg 2 film sublingual DAILY Opioid 05/16/22 02/25/23 sublingual film Withdrawal Previous Rx's Medication Instructions Recorded albuterol sulfate 90 mcg/actuation 4 inh inhalation Q4H PRN shortness 02/25/23 aerosol inhaler of breath or wheezing #8.5 grams Allergies Allergy/AdvReac Type Severity Reaction Status Date / Time levetiracetam [LEVETIRACETAM] Allergy Unknown Verified 05/18/22 11:40 tramadol [TRAMADOL] Allergy Unknown Verified 05/18/22 11:40 Penicillins Allergy Verified 02/20/23 13:25 [facility] Disclaimer: The information contained in this section may have been updated after the patient was seen, as this information can be updated by other users. Medical History
--- NOTE | 2023-05-03 12:32 | CT_ITS ---
PROCEDURE INFORMATION: Exam: CTA Chest With Contrast Exam date and time: 05/03/2023 1:14 PM Age: 42 years old Clinical indication: Other: Elevated d dimer; Additional info: Elevated ddimer TECHNIQUE: Imaging protocol: Computed tomographic angiography of the chest with contrast. Exam focused on the arteries. 3D rendering (Not supervised by radiologist): MIP and/or 3D reconstructed images were created by the technologist. Radiation optimization: All CT scans at this facility use at least one of these dose optimization techniques: automated exposure control; mA and/or kV adjustment per patient size (includes targeted exams where dose is matched to clinical indication); or iterative reconstruction. Contrast material: ISOVUE; Contrast volume: 70 ml; Contrast route: INTRAVENOUS (IV); REPORTING DATA: Count of CT and Cardiac NM exams in prior 12 months: This patient has received [address] and 0 known cardiac nuclear medicine studies in the 12 months prior to the current study. COMPARISON: CT ANGIO CHEST PE PROTOCOL 04/20/2022 8:47 AM FINDINGS: Pulmonary arteries: Pulmonary vasculature is adequately opacified without filling defects or other evidence of acute pulmonary embolism. Aorta: Thoracic aorta is unremarkable. No aortic aneurysm or evidence of aortic dissection. Lungs: Moderate elevation right hemidiaphragm with mild right basilar subsegmental atelectasis, stable. Hypoventilatory changes left lung base with small cluster of indistinct micronodular opacities left lung base likely secondary to bronchiolitis. Upper lung ogden are clear. Chronic granulomatous changes within the right hilum and right lung base. Pleural spaces: Unremarkable. No pneumothorax. No pleural effusion. Heart: Heart is not significantly enlarged. No significant coronary artery calcifications. No significant pericardial effusion. Lymph nodes: Unremarkable. No enlarged lymph nodes. Bones/joints: Unremarkable. No acute fracture. Soft tissues: Unremarkable. IMPRESSION: Negative CT angiogram of the chest. No evidence of acute pulmonary embolism.
== END 2023-05-03 15:02 | disposition home or self-care (01) ==
PROVIDERS: Emergency Provider Emergency Medicine; PCP Nurse Practitioner Family
DX: R07.9 Chest pain, unspecified (principal); F41.9 Anxiety disorder, unspecified; F32.A Depression, unspecified; I10 Essential (primary) hypertension; E78.5 Hyperlipidemia, unspecified; F17.200 Nicotine dependence, unspecified, uncomplicated
CPT/HCPCS: 71045; 71275; 93005; 96374; 99285; Q9967

== ENCOUNTER → 2023-07-06 10:10 | Outpatient (CLI) | payer BC, SELFPAY ==
--- NOTE | 2023-07-06 | CA_ITS ---
APPROVED REPORT Exam: Exercise Treadmill Technologist: Yisel Keith Ht: 5 ft 6 in Wt: 195 lbs BSA: 1.98 m2 HR: 74 bpm BP: 124/82 mmHg Indications: Chest pain Medical History Medications: Amlodipine,,,,, Lisinopril,,,,, Propranolol,,,,, Albuterol,,,,, DulOXETINE,,,,, BuPROPION,,,,, Quetiapine,,,,, Ezetimbe,,,,, Mirtazapine,,,,, BuPRenorphinE-Naloxone,,,,, Stress Test Details Test: Miguel HR Resting HR: 80 bpm Max Heart Rate (APMHR): 180.643784 bpm Max HR Achieved: 122 bpm Target HR (85% APMHR): 153.746049 bpm % of APMHR: 67.78 Recovery HR: 82 bpm BP Resting BP: 124.0/82.0 mmHg Max BP: 162.0/80.0 mmHg Recovery BP: 125.0/67.0 mmHg ECG Resting ECG: Sinus rhythm Clinical Exercise duration: 08:40 min Highest Stage Achieved: Exercise capacity: 10.1 METs Stress ECG Conclusion Symptoms: Dyspnea, Chest tightness Arrhythmias/Ectopy: - ST-T Changes: Less than [address] depression. Concluison: Normal EKG response to exercise up to 68%. Non-diagnostic. Test Summary REST . . . . . . . Sitting REST 04:03 0.0 0.0 80 . 124/ 82 . . Stage 1 01:00 10.0 1.7 92 . . . . Stage 1 02:00 10.0 1.7 96 . . . . Stage 1 03:00 10.0 1.7 95 . 124/ 72 . . Stage 2 01:00 12.0 2.5 102 . . . . Stage 2 02:00 12.0 2.5 107 . . . . Stage 2 03:00 12.0 2.5 108 . 150/ 80 . . Stage 3 01:00 14.0 3.4 115 . . . . Stage 3 02:00 14.0 3.4 120 . . . . Stage 3 02:40 14.0 3.4 121 . . . Stop exercise at 08:40 RECOVERY 01:00 0.0 0.0 101 . 162/ 80 . . RECOVERY 02:00 0.0 0.0 85 . 144/ 77 . . RECOVERY 03:00 0.0 0.0 87 . 144/ 77 . . RECOVERY 04:00 0.0 0.0 81 . 115/ 73 . . RECOVERY 04:55 0.0 0.0 83 . 125/ 67 . . Electronically signed by : Naveed Barrow MD 07/07/2023 21:14:23
--- NOTE | 2023-07-06 10:13 | CA_ITS ---
APPROVED REPORT EXAM: Comprehensive 2D, Doppler, and color-flow Echocardiogram Occupational Health Nursing Director: Gina Grant, MARY, RVS Ht: 5 ft 6 in Wt: 195lbs BSA: 1.98 BP: 110/77 mmHg Indications: ABN EKG, CP, smoker, SOB, Fatigue 2D Dimensions Aortic Root 2.93 cm LA Volume 28.40 mL Left Atrium 2.68 cm LA Volume Index 14.00 mL/m2 (M/F) 16-34 LVOT 1.96 cm (M/F) 1.5-2.5 M-Mode Dimensions RVDd 2.68 cm (0.9-2.6) LA Diam 3.03 cm (1.9-4.0) LVDd 4.55 cm (3.5-5.7) Ao Diam 2.93 cm (2.0-3.7) LVDs 3.18 cm (3.5-5.7) IVSd 0.84 cm (0.6-1.1) PWd 1.10 cm (0.6-1.1) EF (Teich) 57.50% EPSs 0.20 cm FS 30.10% EDV (Teich) 94.90 mL TAPSE 2.17 (<1.7) ESV (Teich) 40.30 mL LV Diastology E Decel Time 193.00 (160-240 msec) E/A Ratio 1.25 MED E' 8.10 (< 7 cm/sec) MED A' 9.70 cm/s E'/MED E' Ratio 10.60 (>14) LAT E' 10.90 (<10 cm/sec) LAT A' 8.10 cm/s E/LAT E' Ratio 7.88 (>14) Aortic Valve LVOT Max 100.00 (70-110 cm/s) LVOT VTI 18.91 cm AoV Peak Hector. 115.00 (50-130 cm/s) AO Peak GR. 5.30 mmHg AO Mean GR. 3.00 (<5 mmHg) AO VTI 22.20 (18-25 cm) ORALIA (VTI) 2.57 (2.5-4.5 cm2) Mitral Valve MV A Velocity 69.00 (40-130 cm/s) E/A Ratio 1.25 MV Decel. Time 193.00 (160-240 ms) Pulmonary Valve NC End VMAX 140.00 cm/s Left Ventricle The left ventricle is normal size. The left ventricular systolic function is normal. The left ventricular ejection fraction is within the normal range. There is normal left ventricular wall thickness. There is normal LV segmental wall motion. The left ventricular diastolic function is normal. LVEF is 55%. Right Ventricle The right ventricle is mildly dilated. The right ventricular systolic function is normal. Atria The left atrium size is normal. The right atrium size is normal. There is no Doppler evidence of interatrial shunt. Aortic Valve The aortic valve opens well. There is no aortic valvular stenosis. Mild aortic regurgitation. Mitral Valve The mitral valve is normal in structure. No evidence of mitral valve stenosis. Trace mitral regurgitation. Tricuspid Valve The tricuspid valve leaflets are thin and pliable. Trace tricuspid regurgitation. There is insufficient TR jet to estimate RVSP. Pulmonic Valve The pulmonary valve is normal in structure. Trace pulmonic regurgitation. Great Vessels The aortic root is normal in size. The ascending aorta is normal in size. IVC is normal in size and collapses >50% with inspiration. Pericardium There is no pericardial effusion. Other Information Study Quality: Fair Conclusion Normal biventricular systolic function. Mildly dilated RV. Mild AI. Electronically signed by : Shari Luna MD 07/09/2023 19:17:33
== END ==
PROVIDERS: PCP Nurse Practitioner Family; Visit Provider Nurse Practitioner Family
DX: R06.02 Shortness of breath (principal); R07.9 Chest pain, unspecified; R94.31 Abnormal electrocardiogram [ECG] [EKG]
CPT/HCPCS: 93017; 93306

== ENCOUNTER → 2023-08-18 07:54 | Outpatient (CLI) | payer BC, SELFPAY ==
--- NOTE | 2023-08-18 07:54 | CA_ITS ---
FINAL REPORT TECHNIQUE: Grayscale, color Doppler and duplex Doppler ultrasound of the kidneys, aorta and renal arteries was performed. Multiple velocities were measured. CLINICAL HISTORY: htn controlled 121/79, Hx left renal stone COMPARISON: None FINDINGS: Aorta velocity: 145 cm/sec Right kidney: 10.0 cm. No evidence of hydronephrosis or mass. Right intrarenal RI: 0.67-0.74 Right renal artery velocity: 163 cm/sec. Right RAR (Renal artery-Aortic Ratio): 1.12 Left Kidney: 9.7 cm. No evidence of hydronephrosis or mass. Left intrarenal RI: 0.66-0.70 Left renal artery velocity: 136 cm/sec. Left RAR (Renal Artery-Aortic Ratio): 0.94 IMPRESSION: No evidence of significant renal artery stenosis. CT angiogram or postcontrast MR angiogram would be more sensitive for evaluation of possible renal artery stenosis. Reviewed, Interpreted and Dictated by Vladimir Henry MD Transcribed by Katelin Corrales Authenticated and [facility]
== END ==
PROVIDERS: PCP Nurse Practitioner Family; Visit Provider Physician Assistant
DX: R06.02 Shortness of breath (principal); R07.9 Chest pain, unspecified; R94.31 Abnormal electrocardiogram [ECG] [EKG]
CPT/HCPCS: 93976

== ENCOUNTER 2024-06-12 14:33 | Emergency (ER) | payer BC, SELFPAY ==
[2024-06-12 14:33] VITALS: BP 147/95; PULSE 105; RESP 18; TEMP 36.8; O2SAT 98; BMI 28.1
--- NOTE | 2024-06-12 14:34 | ECG_ITS ---
APPROVED REPORT Exam: Resting ECG HR:107 bpm ECG Measurements Heart Rate 107 AXES RI 144 P 28 QRSd 95 QRS 40 QT 306 T 38 QTc 369 Conclusion SINUS TACHYCARDIA NONSPECIFIC T-WAVE ABNORMALITY ABNORMAL RHYTHM ECG Electronically signed by : MARTHA REINOSO, 06/12/2024 23:19:01
--- NOTE | 2024-06-12 14:39 | ED_ITS ---
<Statement entered by Minoo Luis DO - 06/12/24 16:59> I was consulted by the SHOSHANA, and we discussed the complexity of the problems being addressed. I approved the treatment and management plan for this patient's care in the emergency department, thus performing a substantive portion of the medical decision making. Minoo Luis DO Discharge Plan Disposition Patient Disposition: Home, Self-Care Condition: Good Prescriptions Prescriptions: No Action lisinopril 20 mg tablet 20 mg PO DAILY propranolol 40 mg tablet 40 mg PO BID mirtazapine 15 mg tablet 15 mg PO DAILY ezetimibe 10 mg tablet 10 mg PO DAILY quetiapine 50 mg tablet 50 mg PO DAILY amlodipine 10 mg tablet See Rx Instructions .ROUTE .COMPLEX Qty: 90 3RF Dose Instruction: TAKE 1 TABLET BY MOUTH ONCE DAILY Rx Instructions: TAKE 1 TABLET BY MOUTH ONCE DAILY duloxetine 30 MG capsule,delayed release(DR/EC) 30 mg PO DAILY buspirone 10 MG tablet 10 mg PO BID bupropion HCl 300 MG tablet extended release 24 hr 300 mg PO DAILY buprenorphine-naloxone 8-2 mg film 2 film sublingual DAILY albuterol sulfate 90 mcg/actuation HFA aerosol inhaler 4 inh inhalation Q4H PRN (Reason: shortness of breath or wheezing) Qty: 8.5 0RF Rx Instructions: 4 puffs every 4 hours for 48 hours then as needed for shortness of breath or wheezing following Referrals Follow up/Referrals: Seema Bustillo APRN [Primary Care Provider] - See instructions Activity Restrictions/Add. Instructions Additional Instructions/Restrictions: As we discussed please follow-up with your mental health provider for reevaluation this week. Return to ER for any worsening signs or symptoms as needed. Clinical Impressions Clinical Impression: Generalized anxiety disorder with panic attacks Instructions Patient Instructions: Anxiety and Panic Attacks (Alternative Therapy), DI for Anxiety -- Adult Print Language Print Language: Sammarinese Discharge ED Provider: Minoo Luis General Adult HPI <VIDHI Metcalf - Last Filed: 06/12/24 16:56> General Chief complaint: Upper Respiratory Infection Stated complaint: Chest Pain Time Seen by Provider: 06/12/24 14:39 History of Present Illness HPI narrative: Patient presents for evaluation of chest pressure. Patient gives a history of 2 weeks of escalating chest tightness and pressure but not specifically pain. He does not have a cardiovascular disease history however he has a long history of generalized anxiety disorder with panic attacks. He reports that he is generally felt unwell but cannot specifically describe how but denies shortness of breath fever chills hemoptysis hematochezia melena nausea vomiting diarrhea. Related Data Home Medications ?Medication ?Instructions ?Recorded ?Confirmed bupropion HCl 300 mg 24 hr tablet, 300 mg PO DAILY Depression 02/07/22 08/04/23 extended release buspirone 10 mg tablet 10 mg PO BID Depression 04/20/22 08/04/23 duloxetine 30 mg capsule,delayed 30 mg PO DAILY Depression 04/20/22 08/04/23 release buprenorphine 8 mg-naloxone 2 mg 2 film sublingual DAILY Opioid 05/16/22 08/04/23 sublingual film Withdrawal ezetimibe 10 mg tablet 10 mg PO DAILY 07/05/23 08/04/23 lisinopril 20 mg tablet 20 mg PO DAILY 07/05/23 08/04/23 mirtazapine 15 mg tablet 15 mg PO DAILY 07/05/23 08/04/23 propranolol 40 mg tablet 40 mg PO BID 07/05/23 08/04/23 quetiapine 50 mg tablet 50 mg PO DAILY 07/05/23 08/04/23 Previous Rx's ?Medication ?Instructions ?Recorded albuterol sulfate 90 mcg/actuation 4 inh inhalation Q4H PRN shortness 02/25/23 aerosol inhaler of breath or wheezing #8.5 grams amlodipine 10 mg tablet See Rx Instructions .Route 09/30/23 .COMPLEX #90 tabs Allergies Allergy/AdvReac Type Severity Reaction Status Date / Time levetiracetam [LEVETIRACETAM] Allergy Unknown Verified 08/04/23 10:54 tramadol [TRAMADOL] Allergy Unknown Verified 08/04/23 10:54 Penicillins Allergy Verified 08/04/23 10:54 [facility] <VIDHI Metcalf - Last Filed: 06/12/24 16:56> [facility] Disclaimer: The information contained in this section may have been updated after the patient was seen, as this information can be updated by other users. Medical History Anemia Anxiety Depression Encounter for monitoring Suboxone maintenance therapy Gastritis History of anemia History of opioid abuse Hyperlipidemia Hypertension Hypoalbuminemia Hypokalemia Ingestion of unknown medication Noncompliance with medication treatment due to abuse of medication Tori was consulted to floor due to medication abuse that resulted in overdose. Pleurisy Strep sore throat Viral syndrome Social History Smoking Status: Current every day smoker second hand exposure: No alcohol intake: never substance use type: opiates current occupational status: unemployed Travel in the last 8 weeks: None household members: other housing: house caffeine: Yes Other Medical History Have you received the Flu Vaccine for this season: No Have you received the Pneumonia Vaccine: No <VIDHI Metcalf - Last Filed: 06/12/24 16:56> ROS Obtained: Yes Systems reviewed as appropriate & no additional complaints except as documented Physical Exam <VIDHI Metcalf - Last Filed: 06/12/24 16:56> General General appearance: alert and in no apparent distress Respiratory Respiratory exam: Present normal lung sounds bilaterally Cardiovascular Cardiovascular exam: Present tachycardia Neurological Exam Neurological exam: Present alert and oriented X3 Psychiatric Psychiatric exam: Present anxious Medical Decision Making <VIDHI Metcalf - Last Filed: 06/12/24 16:56> Medical Records Medical records reviewed: Yes I reviewed the patient's medical records. Screening: Per USPSTF and CDC recommendations, given the prevalence of disease in our region, it is our hospital?s policy to screen for HIV and viral Hepatitis for all patients aged 18 and over and those with ongoing risk factors. [place] Inquiry Pt receiving controlled substance: No Vital Signs: 06/12/24 14:33 06/12/24 15:44 Temperature 98.2 F Temperature Source Oral Pulse Rate 88 Pulse Rate [Apical] 105 H Respiratory Rate 18 Blood Pressure 137/84 Blood Pressure [Left Arm] 147/95 H Blood Pressure Mean [Left Arm] 112 Blood Pressure Source [Left Arm] Automatic Cuff Blood Pressure Position [Left Arm] Sitting 02 Sat by Pulse Oximetry 98 100 Oxygen Delivery Method Room Air Room Air Lab Data Lab results reviewed: Yes I reviewed the patient's lab results. Lab Results 06/12/24 15:00: SARS-CoV-2 (PCR) Not detected, Influenza A Untype (PCR) Not detected, Influenza Type B (PCR) Not detected 06/12/24 15:42: WBC 8.1, RBC 5.60, Hgb 18.1 H, Hct 49.1, MCV 87.7, MCH 32.3 H, M CHC 36.8 H, RDW 13.8, Plt Count 280, MPV 6.8 L, Neut % (Auto) 76.4, Lymph % (Auto) 17.2, [place] % (Auto) 5.2, Eos % (Auto) 0.4, Baso % (Auto) 0.8, Neut # (Auto) 6.2, Lymph # (Auto) 1.4, [place] # (Auto) 0.4, Eos # (Auto) 0.0, Baso # (Auto) 0.1, D-Dimer < 0.25, Sodium 139, Potassium 4.2, Chloride 99, Carbon Dioxide 32 H, Anion Gap 12.2, BUN 12, Creatinine 1.10, Estimated Creat Clear 102, Estimated GFR 74, Est GFR ( Amer) 89, Glucose 112 H, Calcium 9.8, Magnesium 1.9, Total Bilirubin 1.2, AST 29, ALT 29, Alkaline Phosphatase 82, Troponin I < 0.01, Total Protein 9.0 H, Albumin 5.1 H, Globulin 3.9 H, Albumin/Globulin Ratio 1.3 06/12/24 15:42 06/12/24 15:42 Orders (Tests/Meds): ED MEDICATIONS Discontinued Medications Generic Name Dose Route Start Last Admin Trade Name Freq PRN Reason Stop Dose Admin Acetaminophen 1,000 mg 06/12/24 14:41 06/12/24 14:59 Acetaminophen 500mg Tab PO 06/12/24 14:42 1,000 mg ONCE ONE Administration Hydroxyzine Pamoate 50 mg 06/12/24 14:41 06/12/24 14:59 Hydroxyzine Pamoate 25mg Capsule PO 06/12/24 14:42 50 mg ONCE ONE Administration ORDERS Category Date Time Status Chest XR 2 view (NOT portable) [XR chest 2V] Stat Exams 06/12/24 14:41 Completed CBC w/Auto Diff [Complete Blood Count Auto Diff] Stat Lab 06/12/24 15:42 Completed CMP [Comprehensive Metabolic Panel] Stat Lab 06/12/24 15:42 Completed D-Dimer Stat Lab 06/12/24 15:42 Completed HIV (1&2) Antibody Rapid Stat Lab 06/12/24 15:42 Received Hep C Ab with Reflex to RNA Stat Lab 06/12/24 15:42 Received Magnesium Stat Lab 06/12/24 15:42 Completed Rapid PCR Covid and Flu A/B Stat Lab 06/12/24 15:00 Completed Thyroid Panel Stat Lab 06/12/24 15:42 Received Trop I [Troponin I] Stat Lab 06/12/24 15:42 Completed Troponin I Q3H Lab 06/12/24 17:45 Ordered Troponin I Q3H Lab 06/12/24 20:45 Ordered UA [Urinalysis and Microscopic] Stat Lab 06/12/24 16:00 Received HEART Score History (anamnesis): Slightly suspicious ECG: Normal Age: <45 years Risk factors: 1-2 risk factors Troponin: </= normal limit HEART Score: 1 Medical Decision Narrative: In summary patient is a 43-year-old male who presents to the emergency department for evaluation of chest pressure. Patient is initially normotensive 147/95 heart rate 105 respiratory rate 18 O2 sats 90% on room air upon arrival, afebrile. Physical exam is remarkable for sinus tachycardia on the bedside EKG with normal heart sounds normal breath sounds no abdominal pain no reproducible chest pain on exam but slightly anxious countenance.. Differential diagnosis includes ACS versus anxiety versus anxiety with panic versus respiratory tract infection etc. Initial workup will be conducted with twelve-lead EKG hematologic labs COVID and flu swabs plain from chest x-ray. Initial interventions include Tylenol Vistaril Toradol. Initial workup reviewed by me shows that his hematologic labs are nonactionable he has an undetectable troponin and my informal interpretation of his plain film chest x-ray shows no acute processes, his respiratory swabs are negative. Upon repeat evaluation patient reports significant improvement after initial intervention. Given this it is unlikely patient has any evidence of ACS or cardiac involvement given the length of continuous symptoms and the undetectable troponin, negative hematologic and swabs suggest that this is not infectious process leaving an anxiety flare with panic most likely cause. Patient admits is much that he feels that his anxiety has been escalating over the last 2 weeks. Thus patient is appropriate for discharge at this time given that his symptoms have improved with close follow-up with his mental health provider and PCP and strict return precautions. <Minoo Luis, DO - Last Filed: 06/12/24 15:22> Vital Signs: 06/12/24 14:33 06/12/24 15:44 Temperature 98.2 F Temperature Source Oral Pulse Rate 88 Pulse Rate [Apical] 105 H Respiratory Rate 18 Blood Pressure 137/84 Blood Pressure [Left Arm] 147/95 H Blood Pressure Mean [Left Arm] 112 Blood Pressure Source [Left Arm] Automatic Cuff Blood Pressure Position [Left Arm] Sitting 02 Sat by Pulse Oximetry 98 100 Oxygen Delivery Method Room Air Room Air Lab Data Lab Results 06/12/24 15:00: SARS-CoV-2 (PCR) Not detected, Influenza A Untype (PCR) Not detected, Influenza Type B (PCR) Not detected 06/12/24 15:42: WBC 8.1, RBC 5.60, Hgb 18.1 H, Hct 49.1, MCV 87.7, MCH 32.3 H, M CHC 36.8 H, RDW 13.8, Plt Count 280, MPV 6.8 L, Neut % (Auto) 76.4, Lymph % (Auto) 17.2, [place] % (Auto) 5.2, Eos % (Auto) 0.4, Baso % (Auto) 0.8, Neut # (Auto) 6.2, Lymph # (Auto) 1.4, [place] # (Auto) 0.4, Eos # (Auto) 0.0, Baso # (Auto) 0.1, D-Dimer < 0.25, Sodium 139, Potassium 4.2, Chloride 99, Carbon Dioxide 32 H, Anion Gap 12.2, BUN 12, Creatinine 1.10, Estimated Creat Clear 102, Estimated GFR 74, Est GFR ( Amer) 89, Glucose 112 H, Calcium 9.8, Magnesium 1.9, Total Bilirubin 1.2, AST 29, ALT 29, Alkaline Phosphatase 82, Troponin I < 0.01, Total Protein 9.0 H, Albumin 5.1 H, Globulin 3.9 H, Albumin/Globulin Ratio 1.3 Orders (Tests/Meds): ED MEDICATIONS Discontinued Medications Generic Name Dose Route Start Last Admin Trade Name Freq PRN Reason Stop Dose Admin Acetaminophen 1,000 mg 06/12/24 14:41 06/12/24 14:59 Acetaminophen 500mg Tab PO 06/12/24 14:42 1,000 mg ONCE ONE Administration Hydroxyzine Pamoate 50 mg 06/12/24 14:41 06/12/24 14:59 Hydroxyzine Pamoate 25mg Capsule PO 06/12/24 14:42 50 mg ONCE ONE Administration ORDERS Category Date Time Status Chest XR 2 view (NOT portable) [XR chest 2V] Stat Exams 06/12/24 14:41 Completed CBC w/Auto Diff [Complete Blood Count Auto Diff] Stat Lab 06/12/24 15:42 Completed CMP [Comprehensive Metabolic Panel] Stat Lab 06/12/24 15:42 Completed D-Dimer Stat Lab 06/12/24 15:42 Completed HIV (1&2) Antibody Rapid Stat Lab 06/12/24 15:42 Received Hep C Ab with Reflex to RNA Stat Lab 06/12/24 15:42 Received Magnesium Stat Lab 06/12/24 15:42 Completed Rapid PCR Covid and Flu A/B Stat Lab 06/12/24 15:00 Completed Thyroid Panel Stat Lab 06/12/24 15:42 Received Trop I [Troponin I] Stat Lab 06/12/24 15:42 Completed Troponin I Q3H Lab 06/12/24 17:45 Ordered Troponin I Q3H Lab 06/12/24 20:45 Ordered UA [Urinalysis and Microscopic] Stat Lab 06/12/24 16:00 Received ECG Data Tracing #1: I reviewed this ECG and interpreted as documented below: Sinus tachycardia with a ventricular rate of [address] changes concerning for ischemia. Normal axis and intervals. ECG initial impression date: 06/12/24 ECG initial impression time: 14:40 Critical Care <VIDHI Metcalf - Last Filed: 06/12/24 16:56> Critical Care Time Critical Care Time: No
--- NOTE | 2024-06-12 14:41 | XR_ITS ---
FINAL REPORT CLINICAL HISTORY: Chest pain COMPARISON: 05/03/2023 FINDINGS: 2 views of the chest were obtained . The heart is normal in size. The mediastinum is within normal limits. The lungs are underinflated but otherwise clear. There is elevation of the right hemidiaphragm. There is no pneumothorax. Osseous structures are unremarkable. IMPRESSION: Elevation of the right hemidiaphragm. Reviewed, Interpreted and Dictated by Vladimir Henry MD Transcribed by Sera Hernandez Authenticated and . [facility]
--- NOTE | 2024-06-12 14:58 | PC.NURSE ---
called house for US guided IV
[2024-06-12] MEDS: hydrOXYzine pamoate 25MG CAPSULE 50 MG PO (14:59)
[2024-06-12] MEDS: ACETAMINOPHEN 500MG TAB 1000 MG PO (14:59)
[2024-06-12 15:07] LABS: Coronavirus 19, PCR Not Detected (NotDetected); Influenza A, PCR Not Detected (NotDetected); Influenza B, PCR Not Detected (NotDetected)
[2024-06-12 15:44] VITALS: BP 137/84; PULSE 88; O2SAT 100
[2024-06-12 15:55] LABS: Albumin Level 5.1 g/dl (3.5-5.0); Chloride 99 mmol/L (98-107); Sodium 139 mmol/L (136-145)
[2024-06-12 15:56] LABS: Basophils # 0.1 K/mm3 (0-0.2); Basophils % 0.8 % (0.1-2.0); Eosinophils % 0.4 % (0.1-12.0); Hematocrit 49.1 % (42.0-52.0); Lymphocytes # 1.4 K/mm3 (0.7-4.5); Lymphocytes % 17.2 % (10-50); Mean Corpuscular HGB Conc 36.8 g/dL (31.8-35.4); Mean Corpuscular Hemoglobin 32.3 pg (27.0-31.2); Mean Corpuscular Volume 87.7 fl (80-94); Mean Platelet Volume 6.8 fl (7.4-10.4); Monocytes # 0.4 K/mm3 (0.1-1.0); Monocytes % 5.2 % (1.7-9.3); Neutrophils # 6.2 K/mm3 (1.8-7.8); Neutrophils % 76.4 % (37.0-80.0); Platelet Count 280 K/mm3 (142-424); Potassium 4.2 mmoL/L (3.5-5.1); Red Cell Distribution Width 13.8 % (11.5-17.5); White Blood Count 8.1 K/mm3 (4.8-10.8)
[2024-06-12 15:58] LABS: Alanine Aminotransferase 29 U/L (12-78); Albumin/Globulin Ratio 1.3 (1.1-1.8); Alkaline Phosphatase 82 U/L (38-126); Anion Gap 12.2 mEq/L (5-15); Aspartate Amino Transferase 29 U/L (17-59); Bilirubin,Total 1.2 mg/dl (0.2-1.3); Blood Urea Nitrogen 12 mg/dl (9-20); Carbon Dioxide 32 mmol/L (22.0-30.0); Creatinine Clearance Estimated 102 mL/min (50-200); Estimated Glomerular Filt Rate 74 ml/min (>60); GFR (African American) 89 ML/MIN (>60); Globulin 3.9 g/dL (1.3-3.2)
[2024-06-12 15:59] LABS: Calcium 9.8 mg/dl (8.4-10.2); Glucose 112 mg/dl (74-100); Magnesium 1.9 mg/dl (1.6-2.3)
[2024-06-12 16:09] LABS: Microscopic, Urine URINE MICROSCOPIC (MICROSCOPIC)
[2024-06-12 16:18] LABS: Troponin I < 0.01 ng/ml (0.00-0.034)
[2024-06-12 16:21] LABS: Appearance,Urine CLEAR (Clear); Bilirubin,Urine Negative (Negative); Blood, Urine TRACE-I (Negative); Color,Urine YELLOW (Yellow); Glucose,Urine (UA) Negative (Negative); Ketones,Urine Negative (Negative); Leukocyte Esterase,Urine Negative (Negative); Nitrate,Urine Negative (Negative); PH,Urine 6.5 (5.0-8.5); Protein,Urine Negative (Negative); Urobilinogen,Urine 0.2 EU/dl (0.2)
[2024-06-12 16:34] LABS: Hemoglobin 18.1 g/dL (14.1-18.0)
[2024-06-12 16:38] LABS: D-Dimer < 0.25 ug/mL (0.0-0.5)
[2024-06-12 16:53] VITALS: BP 136/85; PULSE 72; RESP 16; TEMP 36.7; O2SAT 98
[2024-06-12 17:10] LABS: Bacteria,Urine Trace /lpf; RBC,Urine Occasional #/hpf (0-3); WBC,Urine Occasional #/hpf (0-3)
[2024-06-12 19:55] LABS: HIV (1&2) Antibody Rapid NONREACTIVE (NONREACTIVE)
[2024-06-13 03:32] LABS: Thyroid Stimulating Hormone 0.55 uIU/mL (0.465-4.68)
[2024-06-13 04:17] LABS: Free Thyroxine Index 4.7 ug/dL (5.93-13.13); T4 (Thyroxine) 12.4 ug/dl (5.53-11.0); Triiodothryronine (T3) Uptake 38 % (23.5-40.5)
[2024-06-14 05:27] LABS: HCV Ab Non Reactive (Non Reactive)
== END 2024-06-12 16:54 | disposition home or self-care (01) ==
PROVIDERS: Physician Assistant; Emergency Provider Emergency Medicine; PCP Nurse Practitioner Family
DX: F41.1 Generalized anxiety disorder (principal); R07.89 Other chest pain
CPT/HCPCS: 71046; 80053; 81001; 83735; 84436; 84443; 84479; 84484; 85025; 85378; 86803; 87389; 87636; 93005; 99284